=== PATIENT | male | born 1955 | race African-American/Black ===

== ENCOUNTER 2017-11-04 21:21 | Inpatient (IN) | payer OTHER, MEDICARE ==
[~2017-11-04] VITALS: Ht 172.7 cm; Wt 95.5 kg
[2017-11-04] MEDS ORDERED: DIPHTH/TETANUS/ACEL PERTUSSIS (BOOSTER) 0.5 ML VIAL/PFS IM ONE (21:34)
[2017-11-04] MEDS ORDERED: ceFAZolin 2 GM PREMIX 50 ML ONE (21:34)
[2017-11-04 21:48] LABS: AUTOMATED NEUTROPHIL # 4.6 TH/MM3 (1.8-7.7); BASOPHIL # 0.1 TH/MM3 (0-0.2); BASOPHIL % 1.4 % (0.0-2.0); EOSINOPHIL # 0.5 TH/MM3 (0-0.4); EOSINOPHIL % 4.6 % (0.0-4.0); HEMATOCRIT 33.3 % (39.0-51.0); HEMOGLOBIN 10.6 GM/DL (13.0-17.0); LYMPH % 40.5 % (9.0-44.0); LYMPHOCYTE # 4.3 TH/MM3 (1.0-4.8); MEAN CELL VOLUME 82.8 FL (80.0-100.0); MEAN CORPUSCULAR HEMOGLOBIN 26.5 PG (27.0-34.0); MEAN PLATELET VOLUME 6.6 FL (7.0-11.0); MONO % 9.5 % (0.0-8.0); PLATELET COUNT 410 TH/MM3 (150-450); RED BLOOD COUNT 4.02 MIL/MM3 (4.50-5.90); RED CELL DISTRIBUTION WIDTH 17.3 % (11.6-17.2); WHITE BLOOD COUNT 10.6 TH/MM3 (4.0-11.0)
[2017-11-04 21:56] LABS: INTERNATIONAL NORMALIZED RATIO 0.9 RATIO; PROTHROMBIN TIME - PATIENT 9.1 SEC (9.8-11.6)
[2017-11-04 22:00] VITALS: BP 151/81; PULSE 91; RESP 20; TEMP 98.3; O2SAT 100
[2017-11-04] MEDS ORDERED: ETOMIDATE 20 MG/10 ML VIAL ONE (22:01)
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
[2017-11-04] MEDS ORDERED: PROPOFOL 500 MG/50 ML INJ 50 ML ONE ×2 (22:24→23:36)
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
[2017-11-04] MEDS ORDERED: SODIUM CHLOR 0.9% 1000 ML INJ 1,000 ML IV SCH (22:38)
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
[2017-11-04] MEDS ORDERED: MAGNESIUM HYDROXIDE SUSP 30 ML CUP PO PRN (22:45)
[2017-11-04] MEDS ORDERED: LACTULOSE SYRUP 20 GM/30 ML CUP PO PRN (22:45)
[2017-11-04] MEDS ORDERED: BISACODYL 10 MG SUPP RECTAL PRN (22:45)
[2017-11-04] MEDS ORDERED: MISCELLANEOUS NURSING INFORMATION XX SCH (22:45)
[2017-11-04] MEDS ORDERED: SENNOSIDES 8.6 MG TAB PO PRN (22:45)
[2017-11-04] MEDS ORDERED: CHLORHEXIDINE GLUCONATE 2 % 1 PACK (2 CLOTHS) TOP PRN (22:45)
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
--- NOTE | 2017-11-04 22:51 | PD.CONS ---
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 CONCLUSION: 1. Comminuted impacted distal femoral fracture. Preston Cuellar MD Elbow X-Ray 11/04/17 0000 Signed Impressions: Service Date/Time: Saturday, November 04, 2017 21:23 - CONCLUSION: 1. Limited examination demonstrating comminuted fracture of the distal humerus and proximal ulna. Preston Cuellar MD Chest X-Ray 11/04/17 0000 Signed Impressions: Service Date/Time: Saturday, November 04, 2017 21:23 - CONCLUSION: 1. Displaced lower left rib fractures without significant pneumothorax. 2. Patchy airspace disease in the left lower lung zone consistent with contusions. Preston Cuellar MD Assessment and Plan Assessment and Plan Caprini Risk Assessment Model Point Value = 1 Point Value = 2 Point Value = 3 Point Value = 5 Age 41-60 Minor surgery BMI > 25 kg/m2 Swollen legs Varicose veins or History of unexplained or recurrent spontaneous Oral contraceptives or hormone replacement Sepsis (< 1 month) Serious lung disease, including pneumonia (< 1 month) Abnormal pulmonary function Acute myocardial infarction Congestive heart failure (< 1 month) History of inflammatory bowel disease Medical patient at bed rest Age 61-74 Arthroscopic surgery Major open surgery (> 45 min) Laparoscopic surgery (> 45 min) Malignancy Confined to bed (> 72 hours) Immobilizing plaster cast Central venous access Age >= 75 History of VTE Family history of VTE Factor V Leiden Prothrombin [id number] Lupus anticoagulant Anticardiolipin antibodies Elevated serum homocysteine Heparin-induced thrombocytopenia Other congenital or acquired thrombophilia Stroke (< 1 month) Elective arthroplasty Hip, pelvis, or leg fracture Acute spinal cord injury (< 1 month) Prophylaxis Regimen Total Risk Factor Score Risk Level Prophylaxis Regimen 0-1 Low Early ambulation 2 Moderate Order ONE of the following: *Sequential Compression Device (SCD) *Heparin 5000 units SQ BID 3-4 Higher Order ONE of the following medications: *Heparin 5000 units SQ TID *Enoxaparin/Lovenox 40 mg SQ daily (WT < 150 kg, CrCl > 30 mL/min) *Enoxaparin/Lovenox 30 mg SQ daily (WT < 150 kg, CrCl > 10-29 mL/min) *Enoxaparin/Lovenox 30 mg SQ BID (WT < 150 kg, CrCl > 30 mL/min) AND/OR *Sequential Compression Device (SCD) 5 or more Highest Order ONE of the following medications: *Heparin 5000 units SQ TID (Preferred with Epidurals) *Enoxaparin/Lovenox 40 mg SQ daily (WT < 150 kg, CrCl > 30 mL/min) *Enoxaparin/Lovenox 30 mg SQ daily (WT < 150 kg, CrCl > 10-29 mL/min) *Enoxaparin/Lovenox 30 mg SQ BID (WT < 150 kg, CrCl > 30 mL/min) AND *Sequential Compression Device (SCD) Attending Statement I reviewed his clinical and radiological studies Pelvis X-Ray 11/04/172135 Signed Impressions: Service Date/Time: Saturday, November 04, 2017 21:23 - CONCLUSION: 1. Right pubic rami and bilateral sacral fractures. Preston Cuellar MD Chest X-Ray 11/04/172135 Signed Impressions: Service Date/Time: Saturday, November 04, 2017 21:23 - CONCLUSION: 1. ETT in good position. Preston Cuellar MD Hand X-Ray 11/04/17 Signed Impressions: Service Date/Time: Saturday, November 04, 2017 21:23 - CONCLUSION: 1. Limited examination. 2. Comminuted fracture of the distal fourth metacarpal with questionable nondisplaced fracture of the proximal fourth phalanx. Preston Cuellar MD Femur X-Ray 11/04/17 0000 Signed Impressions: Service Date/Time: Saturday, November 04, 2017 21:23 - CONCLUSION: 1. Comminuted impacted distal femoral fracture. Preston Cuellar MD Elbow X-Ray 11/04/17 Signed Impressions: Service Date/Time: Saturday, November 04, 2017 21:23 - CONCLUSION: 1. Limited examination demonstrating comminuted fracture of the distal humerus and proximal ulna. Preston Cuellar MD Chest X-Ray 11/04/17 0000 Signed Impressions: Service Date/Time: Saturday, November 04, 2017 21:23 - CONCLUSION: 1. Displaced lower left rib fractures without significant pneumothorax. 2. Patchy airspace disease in the left lower lung zone consistent with contusions. Preston Cuellar MD Traumatic brain injury. neuro checks in a serial fashion. Placement of ICP monitor is indicated as recommended by the [facility] [employer] of [employer]. A follow-up CT of the head will be obtained in 24 hours. He is at risk of deterioration. If the hemorrhage gets significantly worse he may need to undergo a craniotomy with evacuation of the hematoma. Narcotic analgesics for pain control Pulmonary. FULL MECHANICAL VENTILATION. aggressive pulmonary toilette, nasotracheal suction, and breathing treatments with nebulizers. Femur fracture. COnsult orthopedics \ Daily PT and OT Nutrition. Tolerating Oral diet Renal. monitor closely urine output, BUN and creatinine Endocrine.Monitor serial Acu checks and SSI as needed in detail ID monitor for signs of infection Protonix for stress ulcer prophylaxis Aneesh hose and SCD's for DVT prophylaxis Further recommendations will be provided depending on the patient's clinical evaluation and follow up studies. Doug Fu MD Nov 04, 2017 22:51
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
[2017-11-04 23:00] VITALS: PULSE 85
[2017-11-04] MEDS ORDERED: fentaNYL DRIP 250 ML IV PRN (23:00)
[2017-11-04] MEDS ORDERED: PROPOFOL 1000 MG/100 ML INJ 100 ML IV PRN (23:00)
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
[2017-11-04 23:57] VITALS: O2SAT 100
[2017-11-05] VITALS (17 sets, daily range): BP systolic 114–155; BP diastolic 54–84; PULSE 55–86; RESP 18–20; TEMP 91.8–97.5; O2SAT 100
[2017-11-05] MEDS: levETIRAcetam INJ 500 MG in SODIUM CHLORIDE 0.9% INJ 100 ML IV SCH ×3 (00:24→20:48)
[2017-11-05] MEDS ORDERED: MANNITOL INJ 200 ML ONE (00:38)
[2017-11-05] MEDS ORDERED: MIDAZOLAM HCL 5 MG/ML VIAL (1 ML) ONE (00:43)
[2017-11-05] MEDS ORDERED: ROCURONIUM INJ 50 MG/5 ML VIAL ONE (00:45)
[2017-11-05] MEDS ORDERED: MANNITOL 12.5 GM/50 ML VIAL IV ONE (00:45)
[2017-11-05] MEDS ORDERED: MIDAZOLAM HCL 2 MG/2 ML VIAL IV PUSH ONE (00:45)
[2017-11-05] MEDS ORDERED: NOREPINEPHRINE 4 MG/4 ML AMP ONE (00:58)
[2017-11-05] MEDS ORDERED: SODIUM CHLORIDE 23.4% INJ 240 MEQ in SYRINGE/BAG 1 EA IV ONE (01:00)
[2017-11-05] MEDS ORDERED: levETIRAcetam 500 MG/NS 100 ML IV ONE ×2 (01:15)
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
--- NOTE | 2017-11-05 01:55 | PD.PROCEDR ---
Procedure Note Procedure DATE: 11/05/17 CENTRAL LINE PLACEMENT: Right internal jugular vein. INDICATION: Central venous access CONSENT Procedure was performed emergently as patient has severe TBI in need of central venous access for hypertonic saline. Patient is not capacitated for medical decision-making. No family available. DESCRIPTION OF THE PROCEDURE The patient was placed in supine position, mild Trendelenburg. In-line C- spine stabilization was maintained by catering administrative assistant while the c-collar was removed. The skin was cleansed with Chloraprep 3. Additional barrier precautions included large sterile drape, sterile gloves, sterile gown, face mask, and hat. 1 % lidocaine was used for local anesthesia. Attempted R subclavian site x3 without success. Under direct ultrasound guidance and on single attempt, the right IJ vein was accessed with an introducer needle. The guide wire was advanced and the tract was dilated. Using Seldinger technique a 7 Sami 20 cm antimicrobial coated triple-lumen catheter was advanced to a depth of 18 centimeters. The guide wire was removed. All ports had good return of dark venous blood and flushed easily with saline. The central line was secured with Stat-lock. A sterile dressing with antibiotic disc was applied. ESTIMATED BLOOD LOSS: Minimal COMPLICATIONS: No apparent complications. STAT chest x-ray demonstrates satisfactory central venous line position without apparent complication. Nichelle Bailon MD Nov 05, 2017 01:54
[2017-11-05] MEDS ORDERED: CALCIUM CHLORIDE INJ 1 GM in DEXTROSE 5% IN WATER 100ML INJ 100 ML IV ONE ×2 (02:00)
[2017-11-05] MEDS ORDERED: SODIUM POLYSTYRENE SULFONATE SUSP 15 GM/60 ML CUP OG-TUBE ONE (02:00)
[2017-11-05] MEDS ORDERED: TERBUTALINE INJ 1 MG/ML AMP SQ PRN (02:00)
[2017-11-05] MEDS ORDERED: SODIUM BICARBONATE 8.4% INJ 50 MEQ/50 ML SYR IV PUSH ONE ×2 (02:00→07:00)
--- NOTE | 2017-11-05 02:13 | RADRPT ---
EXAM DATE/TIME: 11/05/2017 02:04 [place] COMPARISON: CHEST SINGLE AP, November 04, 2017, 21:23. INDICATIONS : Central line placement. MEDICAL HISTORY : None. SURGICAL HISTORY : None. ENCOUNTER: Initial ACUITY: 1 day PAIN SCORE: 0/10 LOCATION: Bilateral chest FINDINGS: A single AP semierect view of the chest was obtained and again demonstrates an endotracheal tube in p lace with the tip approximately 1-2 cm above the jodi. A nasogastric tube is been placed and is see n coursing through the esophagus into the stomach. There is been placement of a right internal jugula r central venous line with the tip projected over the superior vena cava. There is no pneumothorax. A bnormal opacity remains at the left lung base with blunting of the costophrenic angle. The heart size remains within normal limits. CONCLUSION: 1. Interval placement of right internal jugular central venous line with no pneumothorax. 2. Interval placement of nasogastric tube. 3. Abnormal opacity at left lung base with blunting of the costophrenic angle. Rajeev Fairchild MD on November 05, 2017 at 2:11 Board Certified Radiologist. This report was verified electronically.
--- NOTE | 2017-11-05 02:40 | PD.PROCEDR ---
Procedure Note Procedure DATE: 11/05/17 PROCEDURE: Right radial arterial catheter placement INDICATION: Patient with severe TBI in need of continuous hemodynamic monitoring. DETAILS OF PROCEDURE The skin was cleansed with Chloraprep 2. Additional barrier precautions included sterile towels, sterile gloves, sterile gown, face mask, and hat. Access the artery 3 but had difficulty advancing catheter using standard butterfly Arrow kit. Changed to rapid flow arrow kit. On the first attempt, the artery was accessed with an introducer needle. The guide wire was advanced. Using Seldinger technique 20 gauge arterial catheter was placed. The catheter was connected to a transducer line and flushed with saline. The video monitor displayed normal arterial wave forms. The catheter was secured with 2-0 silk. A sterile dressing with antibiotic disc was applied. ESTIMATED BLOOD LOSS: minimal COMPLICATIONS: None Nichelle Bailon MD Nov 05, 2017 02:40
[2017-11-05] MEDS: fentaNYL DRIP 250 ML IV PRN ×2 (02:57→19:58)
[2017-11-05] MEDS: PROPOFOL 1000 MG/100 ML INJ 100 ML IV PRN ×3 (02:57→19:58)
[2017-11-05] MEDS: NOREPINEPHRINE INJ 4 MG in SODIUM CHLOR 0.9% 250 ML INJ 246 ML IV PRN (02:58)
[2017-11-05] MEDS: 3% SALINE INJ 500 ML IV SCH (03:00)
[2017-11-05] MEDS: MIDAZOLAM 100 MG/100 ML INJ 100 ML IV PRN ×2 (03:17→19:57)
[2017-11-05] MEDS: CHLORHEXIDINE GLUCONATE 2 % 1 PACK (2 CLOTHS) TOP SCH (04:00)
[2017-11-05 05:20] LABS: AUTOMATED NEUTROPHIL # 4.6 TH/MM3 (1.8-7.7); BASOPHIL % 0.3 % (0.0-2.0); HEMATOCRIT 22.4 % (39.0-51.0); HEMOGLOBIN 7.3 GM/DL (13.0-17.0); LYMPH % 8.2 % (9.0-44.0); LYMPHOCYTE # 0.5 TH/MM3 (1.0-4.8); MEAN CELL VOLUME 81.5 FL (80.0-100.0); MEAN CORPUSCULAR HEMOGLOBIN 26.8 PG (27.0-34.0); MEAN CORPUSCULAR HGB CONC 32.8 % (32.0-36.0); MEAN PLATELET VOLUME 6.4 FL (7.0-11.0); MONO % 13.2 % (0.0-8.0); MONOCYTE # 0.8 TH/MM3 (0-0.9); NEUT % 78.3 % (16.0-70.0); PLATELET COUNT 280 TH/MM3 (150-450); RED BLOOD COUNT 2.74 MIL/MM3 (4.50-5.90); RED CELL DISTRIBUTION WIDTH 17.5 % (11.6-17.2); WHITE BLOOD COUNT 5.9 TH/MM3 (4.0-11.0)
[2017-11-05 05:29] LABS: INTERNATIONAL NORMALIZED RATIO 0.9 RATIO; PROTHROMBIN TIME - PATIENT 9.6 SEC (9.8-11.6)
[2017-11-05 05:40] LABS: BICARBONATE 22.9 MEQ/L (21.0-32.0); CALCIUM 7.4 MG/DL (8.5-10.1); CREATININE 4.37 MG/DL (0.60-1.30)
[2017-11-05] MEDS ORDERED: DEXTROSE 50% IN WATER 50 ML SYRINGE IV PUSH ONE (07:00)
[2017-11-05] MEDS ORDERED: INSULIN HUMAN REGULAR 1,000 UNITS/10 ML VIAL IV PUSH ONE ×2 (07:00→14:15)
[2017-11-05] MEDS ORDERED: CALCIUM CHLORIDE 10% SOLN 1 GRAM/10 ML SYR IV PUSH ONE (07:00)
[2017-11-05 07:08] LABS: CALCIUM-PROTEIN CORRECTED 8.2 MG/DL (8.5-10.1); TOTAL PROTEIN 5.6 GM/DL (6.4-8.2)
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
[2017-11-05] MEDS: CHLORHEXIDINE 0.12% (ORAL KIT) 15 ML CUP MT SCH ×2 (07:57→20:48)
[2017-11-05] MEDS: DOCUSATE SODIUM 50 MG/SENNA 8.6 MG TAB PO SCH ×2 (07:58→20:48)
[2017-11-05] MEDS: FAMOTIDINE 20 MG/2 ML VIAL IV PUSH SCH ×2 (07:58→20:49)
[2017-11-05] MEDS ORDERED: SODIUM BICARBONATE 8.4% INJ 100 MEQ in DEXTROSE 5% IN WATE 1000ML INJ 1,000 ML IV SCH ×2 (08:00)
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
[2017-11-05] MEDS: SODIUM BICARBONATE 8.4% INJ 100 MEQ in SODIUM CHLOR 0.9% 1000 ML INJ 1,000 ML IV SCH ×2 (08:30→15:15)
[2017-11-05] MEDS: ceFAZolin INJ 1,000 MG VIAL ONE ×2 (08:39→09:28)
[2017-11-05] MEDS ORDERED: VANCOMYCIN HCL 1000 MG VIAL ONE (08:39)
[2017-11-05] MEDS ORDERED: GENTAMICIN SULFATE 80 MG/2 ML VIAL ONE ×2 (08:44)
[2017-11-05 10:01] LABS: HEMATOCRIT 23.4 % (39.0-51.0); HEMOGLOBIN 7.6 GM/DL (13.0-17.0)
[2017-11-05] MEDS ORDERED: PROPOFOL 500 MG/50 ML INJ 50 ML ONE (10:19)
[2017-11-05] MEDS ORDERED: ONDANSETRON HCL 4 MG/2 ML VIAL IVP PRN (11:00)
[2017-11-05] MEDS ORDERED: DEXTROSE 50% IN WATER 50 ML VIAL(D50) IV PUSH PRN (11:00)
[2017-11-05] MEDS ORDERED: GLUCAGON 1 MG/ML VIAL OTHER PRN (11:00)
[2017-11-05] MEDS ORDERED: LACTATED RINGER'S 1000 ML INJ 1,000 ML IV SCH (11:00)
[2017-11-05] MEDS ORDERED: Post-op Orders (for Pharmacy) XX ONE (11:00)
[2017-11-05] MEDS: INSULIN ASPART SUPPLEMENTAL SCALE SQ SCH ×3 (11:00→23:39)
[2017-11-05] MEDS ORDERED: diphenhydrAMINE HCL 25 MG CAP PO PRN (11:00)
[2017-11-05] MEDS ORDERED: ACETAMINOPHEN/HYDROcodone 325 MG/10 MG TAB PO PRN (11:00)
--- NOTE | 2017-11-05 11:06 | PD.OP ---
cc: Jose Daniel Flores MD Operative Report Date of Surgery: Nov 05, 2017 Preoperative Diagnosis: Left distal humerus and olecranon fractures, open left hand second and fourth metacarpal fractures, open left distal femur fracture, multiple pelvic ring fractures, left tibia plateau fracture Postoperative Diagnosis: Procedure: Irrigation and debridement of left hand open second metacarpal fracture, complex wound closure left hand 15 cm in length, external fixation of pelvis, closed reduction pelvic ring fractures, irrigation debridement of open left distal femur fracture, open reduction internal fixation of left distal femur fracture Surgeon: Jose Daniel Flores Security Administrator(s): WONG Ziegler PA-C The surgical procedure was assisted by my physician energy assistant. My P.A. presence was necessary throughout this case for the manipulation and positioning of the surgical extremity. My P.A. was assisting me throughout the duration of this procedure. The skill set of a physician energy assistant was medically necessary to complete this procedure. During the surgical case the assistant professor surgical technology was working at the back table and the physician energy assistant was directly assisting me. Operation and Findings: Plan of activity: Nonweightbearing left arm, low nonweightbearing left leg Implants used: ITS, Orthofix Patient was seen and examined preoperatively. Patient was intubated and sedated. Patient was found to have multiple injuries. He was found to have open left hand fractures and open left distal femur fracture. Because of the open nature of the injuries, this medically was deemed medically necessary as well as medically urgent. Family was not available to sign consents. 2 physicians signed consent with agreement that this procedure was medically necessary to proceed today. Operative site was marked. Patient was brought to the OR, placed on OR table, and given IV sedation with GETA. Spinal precautions were maintained throughout movement of the patient. IV antibiotics were administered and timeout procedure was performed. The left arm and left leg were prepped with alcohol, followed with Hibiclens, draped in usual sterile fashion. A timeout procedure was performed. Patient's head was elevated at all times to help minimize intracranial pressures. The procedure began attention turned towards the left hand. The distal humerus fractures were closed. These will be treated later date. The left hand lacerations were debrided. Skin subcutaneous tissue and fascia were sharply debrided. The second metacarpal fracture was debrided with curettes. After thorough debridement of the hand and soft tissue were thoroughly irrigated with sterile saline. There were 2 lacerations. One laceration was in the first webspace and a second one was on the dorsum of the hand. There was complete laceration of the third digit extensor tendons. At this point the wounds appeared to be clean. Hand surgery will be consultative definitively manage his injuries. Next attention was turned towards closure of the lacerations. Both lacerations were closed on the hand. Skin was closed with 3-0 nylon. Lacerations were closed with a combination of retention suture and vertical mattress suture. The laceration was stellate and complex in nature. Skin edges were completely closed completely with minimal skin tension. Next attention was turned towards the pelvis. Patient had bilateral rami fractures as well as bilateral sacral fractures. Attention was turned towards external fixation. A small incision was made over the anterior inferior iliac spine bilaterally. The supra-acetabular position was visualized under fluoroscopy. Using the Orthofix system, external fixator pins were placed in the supra-acetabular position. Multiplanar fluoroscopy was used to guide pin placement. At this point a external fixator construct was created. The pelvis was gently manipulated to improve reduction. The external fixator was now tightened to hold reduction. Fluoroscopy was used to confirm appropriate alignment of the pelvic fractures. Next attention was turned towards the distal femur. with a 5-inch incision over the lateral aspect of the distal femur. Subcutaneous tissue was dissected with Bovie. Iliotibial band was split in line with fibers. At this point the fracture was visualized. The wound was now thoroughly debrided. Overall the wound was clean. Curettes and rongeurs were used to debride the end of the bone. Multiple small bone fragment were excised. After thorough debridement of soft tissue, muscle, and bone the wound was thoroughly irrigated with sterile saline. Next attention was turned to open reduction internal fixation of the distal femur Traction was applied. Fracture was manipulated. The fracture reduced into excellent alignment. Steinmann pins were used to hold provisional fixation. At this point attention was turned to plate placement. A lateral condylar plate was selected and attached to the insertion handle jig. The plate was placed underneath the vastus lateralis. Steinmann pins were used to hold the plate to bone. Multiplanar fluoroscopy confirmed appropriate placement of plate. Multiple 4.5 cortical screws were now placed in percutaneous fashion through the plate. The plate was compressed to bone. Multiple locking screws were now placed in the distal segment of the distal femur. Additional locking screws were placed into the femoral shaft. All screws were predrilled and premeasured for appropriate length. Final fluoroscopy revealed excellent alignment of fracture with well-placed hardware. Wound was thoroughly irrigated. Fascia was closed with #1 PDS. Subcutaneous tissue was closed with 3-0 PDS. Skin was closed with quinn and 3-0 nylon. Sterile dressings were applied. The patient was placed into a knee immobilizer and transferred to recovery in stable condition. Patient was found to have a comminuted left tibial plateau fracture. This will need staged surgery. CT scan will be obtained of the left knee. Calf compartments were soft. He will also need definitive fixation of left elbow fractures. Needle and sponge counts were correct. Patient was then transferred back to intensive care in critical condition. Jose Daniel Flores MD Nov 05, 2017 11:06
[2017-11-05] MEDS ORDERED: PHENYLEPH/NS 1000 MCG/10 ML SYR IV ONE (12:00)
[2017-11-05] MEDS ORDERED: ROCURONIUM INJ 50 MG/5 ML SYRINGE IV PUSH ONE (12:00)
[2017-11-05] MEDS ORDERED: NORMOSOL R INJ 1,000 ML IV ONE (12:00)
[2017-11-05] MEDS ORDERED: LIDOCAINE HCL 1% PF 5 ML SYRINGE OTHER ONE (12:00)
[2017-11-05] MEDS ORDERED: SUCCINYLCHOLINE CHLORIDE 200 MG/10 ML VIAL IV ONE (12:00)
[2017-11-05] MEDS ORDERED: ERGOCALCIFEROL (VIT D2) 50,000 UNIT CAP PO SCH (12:00)
[2017-11-05] MEDS ORDERED: PROPOFOL 200 MG/20 ML AMP IV ONE (12:00)
--- NOTE | 2017-11-05 13:16 | RADRPT ---
EXAM DATE/TIME: 11/05/2017 09:49 [facility] COMPARISON: CT ABDOMEN & PELVIS W/O CONTRAST, November 04, 2017, 21:47. PELVIS AP ONLY, November 04, 2017, 21:23 . INDICATIONS : External fixation plevis. MEDICAL HISTORY : None. SURGICAL HISTORY : None. ENCOUNTER: Initial ACUITY: 1 day PAIN SCORE: Non-responsive. LOCATION: Bilateral Pelvis FINDINGS: 2 Limited digital views of the pelvis reveal grossly satisfactory alignment of pubic and sacroiliac f ractures. CONCLUSION: Satisfactory operative configuration Eduard Bradshaw MD on November 05, 2017 at 13:13 Board Certified Radiologist. This report was verified electronically.
[2017-11-05 13:28] LABS: BICARBONATE 25.2 MEQ/L (21.0-32.0); CALCIUM 7.9 MG/DL (8.5-10.1); CREATININE 3.91 MG/DL (0.60-1.30)
--- NOTE | 2017-11-05 13:36 | RADRPT ---
EXAM DATE/TIME: 11/05/2017 10:32 [facility] COMPARISON: No previous studies available for comparison. INDICATIONS : Open reduction internal fixation left femur. MEDICAL HISTORY : None. SURGICAL HISTORY : None. ENCOUNTER: Initial ACUITY: 1 day PAIN SCORE: Non-responsive. LOCATION: Left Femur FINDINGS: 7 images were recorded digitally in the operating room during C-arm during placement of a lateral brooks te and multiple screws in the distal femur. CONCLUSION: Intraoperative images. Paco Llamas MD on November 05, 2017 at 13:33 Board Certified Radiologist. This report was verified electronically.
[2017-11-05] MEDS: CALCIUM/VITAMIN D 250 MG/125 U TAB PO SCH ×2 (13:59→18:00)
[2017-11-05] MEDS ORDERED: DEXTROSE 50% IN WATER 50 ML SYRINGE IV ONE (14:15)
[2017-11-05] MEDS ORDERED: SODIUM BICARBONATE 8.4% INJ 50 MEQ/50 ML SYR IV ONE (14:15)
[2017-11-05] MEDS ORDERED: CALCIUM GLUCONATE 10% 1 GM/10 ML VIAL IV ONE (14:15)
[2017-11-05] MEDS ORDERED: CALCIUM CHLORIDE 10% SOLN 1 GRAM/10 ML SYR IV ONE (14:30)
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
[2017-11-05] MEDS ORDERED: SODIUM POLYSTYRENE SULFONATE SUSP 15 GM/60 ML CUP PO ONE (14:45)
[2017-11-05] MEDS ORDERED: FUROSEMIDE 100 MG/10 ML VIAL IV PUSH ONE (15:30)
--- NOTE | 2017-11-05 15:31 | EKG ---
Date Performed: 11/04/2017 Time Performed: 23:16:02 PTAGE: 62 years EKG: Possible ectopic atrial rhythm. Possible inferior infarct - age undetermined Abnormal ECG NO PREVIOUS TRACING DOCTOR: Troy Byrd Interpretating Date/Time 11/05/2017 15:29:58
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
[2017-11-05 16:39] LABS: HEMATOCRIT 23.7 % (39.0-51.0); MEAN CELL VOLUME 80.7 FL (80.0-100.0); MEAN CORPUSCULAR HEMOGLOBIN 27.3 PG (27.0-34.0); MEAN CORPUSCULAR HGB CONC 33.8 % (32.0-36.0); MEAN PLATELET VOLUME 6.8 FL (7.0-11.0); PLATELET COUNT 188 TH/MM3 (150-450); RED BLOOD COUNT 2.93 MIL/MM3 (4.50-5.90); RED CELL DISTRIBUTION WIDTH 16.4 % (11.6-17.2); WHITE BLOOD COUNT 4.3 TH/MM3 (4.0-11.0)
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
[2017-11-05 17:05] LABS: CREATININE 4.21 MG/DL (0.60-1.30)
[2017-11-05 17:06] LABS: BICARBONATE 26.2 MEQ/L (21.0-32.0); CALCIUM 9.3 MG/DL (8.5-10.1)
[2017-11-05] MEDS: ceFAZolin 2 GM PREMIX 50 ML IV SCH (17:37)
--- NOTE | 2017-11-05 18:28 | RADRPT ---
EXAM DATE/TIME: 11/05/2017 17:13 [facility] COMPARISON: FEMUR LEFT (AP & LAT/2VWS), November 05, 2017, 10:32. INDICATIONS : Left hand pain. MEDICAL HISTORY : None. SURGICAL HISTORY : None. ENCOUNTER: Initial ACUITY: 1 day PAIN SCORE: Non-responsive. LOCATION: Left hand. FINDINGS: The examination demonstrates a severely comminuted, moderately displaced, foreshortened fracture invo lving the second metacarpal. In addition, there is mildly displaced fracture through the base of the proximal phalanx of the second digit as well. There are partially visualized fractures involving the head of the fourth metacarpal. Evaluation of fractures is limited secondary to overlying casting mate rial. The remainder the visualized osseous structures appear grossly intact. CONCLUSION: 1. Severely comminuted fracture involving the second metacarpal. 2. Mildly displaced fracture involving the base of the proximal phalanx of the second digit. 3. Mildly displaced fracture involving the fourth metacarpal head Lai Tolliver MD on November 05, 2017 at 18:24 Board Certified Radiologist. This report was verified electronically.
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
[2017-11-05] MEDS: DOCUSATE SODIUM 100 MG CAP PO SCH (20:49)
[2017-11-05 21:36] LABS: SODIUM,RANDOM URINE 80 MEQ/L
[2017-11-05 22:08] LABS: OSMOLALITY,URINE 352 MOSM/KG (300-1300)
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
[2017-11-06] VITALS (19 sets, daily range): BP systolic 111–130; BP diastolic 35–60; PULSE 73–83; RESP 16–20; TEMP 97–99; O2SAT 96–100
[2017-11-06] MEDS: ceFAZolin 2 GM PREMIX 50 ML IV SCH ×3 (00:05→17:08)
[2017-11-06] MEDS: 3% SALINE INJ 500 ML IV SCH (00:10)
[2017-11-06] MEDS: PROPOFOL 1000 MG/100 ML INJ 100 ML IV PRN ×3 (00:54→11:21)
[2017-11-06] MEDS: CHLORHEXIDINE GLUCONATE 2 % 1 PACK (2 CLOTHS) TOP SCH (03:30)
[2017-11-06] MEDS: INSULIN ASPART SUPPLEMENTAL SCALE SQ SCH ×4 (05:26→23:28)
[2017-11-06 05:29] LABS: BASOPHIL % 0.3 % (0.0-2.0); EOSINOPHIL % 0.3 % (0.0-4.0); HEMATOCRIT 24.2 % (39.0-51.0); HEMOGLOBIN 8.2 GM/DL (13.0-17.0); LYMPH % 15.9 % (9.0-44.0); LYMPHOCYTE # 0.9 TH/MM3 (1.0-4.8); MEAN CELL VOLUME 80.1 FL (80.0-100.0); MEAN CORPUSCULAR HEMOGLOBIN 27.3 PG (27.0-34.0); MEAN CORPUSCULAR HGB CONC 34.1 % (32.0-36.0); MEAN PLATELET VOLUME 7.2 FL (7.0-11.0); MONO % 14.7 % (0.0-8.0); MONOCYTE # 0.9 TH/MM3 (0-0.9); NEUT % 68.8 % (16.0-70.0); PLATELET COUNT 206 TH/MM3 (150-450); RED BLOOD COUNT 3.02 MIL/MM3 (4.50-5.90); RED CELL DISTRIBUTION WIDTH 16.3 % (11.6-17.2); WHITE BLOOD COUNT 5.9 TH/MM3 (4.0-11.0)
[2017-11-06] MEDS: NOREPINEPHRINE INJ 4 MG in SODIUM CHLOR 0.9% 250 ML INJ 246 ML IV PRN (05:50)
[2017-11-06 05:57] LABS: BICARBONATE 25.5 MEQ/L (21.0-32.0); CALCIUM 8.3 MG/DL (8.5-10.1); CREATININE 4.54 MG/DL (0.60-1.30)
--- NOTE | 2017-11-06 06:46 | RADRPT ---
EXAM DATE/TIME: 11/06/2017 06:01 [facility] COMPARISON: CHEST SINGLE AP, November 05, 2017, 2:04. INDICATIONS : Shortness of breath. MEDICAL HISTORY : None. SURGICAL HISTORY : None. ENCOUNTER: Subsequent ACUITY: 2 days PAIN SCORE: Non-responsive. LOCATION: Bilateral chest FINDINGS: A single AP semierect portable view of the chest was obtained and again demonstrates an endotracheal tube in place with the tip approximately 2 cm above the jodi. The nasogastric tube remains in place . Abnormal opacity remains at the left lung base with air bronchograms. The left hemidiaphragm is now obscured. The left costophrenic angle is blunted. Right lung remains clear. The heart size is at the upper limits of normal. The right-sided central venous line remains in place. CONCLUSION: 1. Apparent interval increase in opacity at the left lung base. 2. Apparent left effusion. Rajeev Fairchild MD on November 06, 2017 at 6:43 Board Certified Radiologist. This report was verified electronically.
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
[2017-11-06] MEDS: SODIUM BICARBONATE 8.4% INJ 100 MEQ in SODIUM CHLOR 0.9% 1000 ML INJ 1,000 ML IV SCH ×2 (07:44→23:36)
[2017-11-06] MEDS: CHLORHEXIDINE 0.12% (ORAL KIT) 15 ML CUP MT SCH ×2 (08:00→21:00)
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
[2017-11-06] MEDS: DOCUSATE SODIUM 50 MG/SENNA 8.6 MG TAB PO SCH ×2 (08:40→21:42)
[2017-11-06] MEDS: DOCUSATE SODIUM 100 MG CAP PO SCH ×2 (08:40→21:00)
[2017-11-06] MEDS: FAMOTIDINE 20 MG/2 ML VIAL IV PUSH SCH ×2 (08:40→21:43)
[2017-11-06] MEDS: CALCIUM/VITAMIN D 250 MG/125 U TAB PO SCH ×3 (08:40→17:08)
[2017-11-06] MEDS: CHOLECALCIFEROL (VIT D3) 1000 UNIT TAB PO SCH (08:40)
[2017-11-06] MEDS: levETIRAcetam INJ 500 MG in SODIUM CHLORIDE 0.9% INJ 100 ML IV SCH ×2 (08:40→21:42)
[2017-11-06] MEDS: fentaNYL DRIP 250 ML IV PRN (10:00)
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
[2017-11-06] MEDS ORDERED: ENOXAPARIN SODIUM 30 MG/0.3 ML SYRINGE SQ SCH (11:00)
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
[2017-11-06 20:58] LABS: BICARBONATE 27.2 MEQ/L (21.0-32.0); CALCIUM 7.5 MG/DL (8.5-10.1); CREATININE 4.86 MG/DL (0.60-1.30)
[2017-11-07] VITALS (15 sets, daily range): BP systolic 116–133; BP diastolic 50–58; PULSE 78–91; RESP 16; TEMP 95.5–97.9; O2SAT 98–100
[2017-11-07] MEDS: ceFAZolin 2 GM PREMIX 50 ML IV SCH ×3 (00:16→16:37)
[2017-11-07] MEDS: 3% SALINE INJ 500 ML IV SCH (00:59)
[2017-11-07] MEDS: CHLORHEXIDINE GLUCONATE 2 % 1 PACK (2 CLOTHS) TOP SCH (03:23)
[2017-11-07 06:01] LABS: BICARBONATE 25.9 MEQ/L (21.0-32.0); CALCIUM 7.2 MG/DL (8.5-10.1); CREATININE 4.68 MG/DL (0.60-1.30)
--- NOTE | 2017-11-07 06:25 | RADRPT ---
EXAM DATE/TIME: 11/07/2017 05:30 [facility] COMPARISON: 11/06/2017. INDICATIONS : Follow up trauma. Effusion. MEDICAL HISTORY : None. SURGICAL HISTORY : None. ENCOUNTER: Subsequent ACUITY: 4 - 6 days PAIN SCORE: Non-responsive. LOCATION: Bilateral chest FINDINGS: Left rib fractures are again noted with bibasilar consolidation and small effusion. I don't see a pne umothorax. Right lung reasonably clear. Heart size stable, upper limits of normal. Endotracheal tube tip is approximately 2 cm above the jodi. Nasogastric tube courses into the stoma ch. There is a right internal jugular central venous catheter with tip in the superior vena cava. CONCLUSION: Rib fractures with bibasilar consolidation and small effusion again noted on the left not significant ly changed. No pneumothorax. Eduard Rubin MD on November 07, 2017 at 6:22 Board Certified Radiologist. This report was verified electronically.
[2017-11-07 06:28] LABS: CALCIUM-PROTEIN CORRECTED 8.4 MG/DL (8.5-10.1); TOTAL PROTEIN 4.9 GM/DL (6.4-8.2)
[2017-11-07] MEDS: INSULIN ASPART SUPPLEMENTAL SCALE SQ SCH ×4 (06:32→23:00)
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
[2017-11-07] MEDS: CHLORHEXIDINE 0.12% (ORAL KIT) 15 ML CUP MT SCH ×2 (08:00→20:49)
[2017-11-07] MEDS: DOCUSATE SODIUM 50 MG/SENNA 8.6 MG TAB PO SCH ×2 (08:05→20:49)
[2017-11-07] MEDS: CHOLECALCIFEROL (VIT D3) 1000 UNIT TAB PO SCH (08:05)
[2017-11-07] MEDS: DOCUSATE SODIUM 100 MG CAP PO SCH ×2 (08:05→20:49)
[2017-11-07] MEDS: CALCIUM/VITAMIN D 250 MG/125 U TAB PO SCH ×4 (08:05→18:00)
[2017-11-07] MEDS: FAMOTIDINE 20 MG/2 ML VIAL IV PUSH SCH ×2 (08:06→20:49)
[2017-11-07] MEDS: levETIRAcetam INJ 500 MG in SODIUM CHLORIDE 0.9% INJ 100 ML IV SCH ×2 (08:06→20:49)
--- NOTE | 2017-11-07 08:25 | HHI.PR ---
Neuropsych Emotional Emotional: UnabletoAssess: Emotional, Anxious/Fearful, Depressed/Sad, Hostile/ Resentful, Irritable/Angry/Frustrate, Labile, Constricted/Blunted Behavior Behavior: Intact: Impulsive/Agitated, Unable to Asses: Behavior, Coping/ Acceptance, Cooperative w/ Treatment, Motivation, Frustration Tolerance/Percy, Suicidal/Homicidal Risk Cognitive Cognitive: Unable to Asses: Cognitive, Attention/Concentration, Confused/ Orientation, Insight/Awareness, Judgement/Problem-Solving, Memory Psychosocial Psychosocial: Unable to Asses: Psychosocial, Family/Other Adjustment, Realistic Expectation, Self-Esteem/Confidence Progress Notes/Response to Tx Contents of Sessions: Adjustment, Level of Consciousness Time with Patient: 15 minutes Premorbid psychological status Premorbid Cognitive, Emotional and Behavioral Status: Unable to Assess. The patient has unknown years of education and an unknown work history prior to this injury. The patient has no known prior] psychiatric difficulties, as described above. Substance abuse history is unknown. Behavioral Reactions of Patient and Family/Support System: Deferred. The patients family is experiencing ongoing issues of adjustment given the nature of the injury, and this aspect of recovery will require ongoing monitoring. Emotional/Behavioral Status of Patient and Family/Support System: Deferred. Pertinent issues, if appropriate to this patients clinical care, are described in detail above. Maximizing acute care outcome It is recommended that the patient be monitored for emergent behavioral impulsivity as the medical condition evolves. This patients neuropathological challenges may limit his rehabilitation potential going forward, and these challenges will require specialized therapeutic skills to maximize outcome. Additionally, the patients family is experiencing ongoing issues of adjustment given the traumatic nature of the injury, and they may benefit from ongoing psychological assistance. At this point in the recovery process, the patient does not have cognitive capacity as the patient is unable to understand a situation and its likely consequences, nor is he able to manipulate information rationally. Cognitive capacity will be assessed throughout the recovery process. Anticipated Problems Ongoing areas of concern will include behavioral impulsivity, lack of insight and judgment, which is expected to improve with time and treatment. Given the severity of the patient's injuries it is my clinical opinion that this patient will be unable to return to any type of productive employment for at least one year, perhaps longer and likely never. This patient is not considered safe to discharge home without supervision. Treatment Plan This clinician will continue to follow with you throughout the course of this patients critical care treatment, and I will be available to meet with the patients family/support system to facilitate their understanding and the ongoing care of their family member. The goals of neuropsychological intervention shall be both educational and supportive to the family/support system as is deemed clinically appropriate. [facility] Level: I:No response-total assistance Diagnosis: (1) Major neurocognitive disorder as late effect of traumatic brain injury without behavioral disturbance Progress Note Narrative PTD 3. The patient remains intubated, ventilated and sedated. No neurobehavioral issues at present. He was out today for surgery. He is [place] I will follow. Jens Strickland PhD Nov 07, 2017 8:25 am
[2017-11-07] MEDS ORDERED: VANCOMYCIN HCL 1000 MG VIAL ONE ×2 (09:31→12:05)
[2017-11-07] MEDS ORDERED: GENTAMICIN SULFATE 80 MG/2 ML VIAL ONE (09:31)
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
[2017-11-07] MEDS ORDERED: VECURONIUM BROMIDE 20 MG VIAL IV ONE (12:00)
[2017-11-07] MEDS ORDERED: ROCURONIUM INJ 50 MG/5 ML SYRINGE IV PUSH ONE (12:00)
[2017-11-07] MEDS ORDERED: PHENYLEPH/NS 1000 MCG/10 ML SYR IV ONE (12:00)
[2017-11-07] MEDS ORDERED: PROPOFOL 200 MG/20 ML AMP IV ONE (12:00)
[2017-11-07] MEDS: LACTATED RINGER'S 1000 ML INJ 1,000 ML IV SCH (13:00)
--- NOTE | 2017-11-07 13:07 | PD.OP ---
cc: Jose Daniel Flores MD Operative Report Date of Surgery: Nov 07, 2017 Preoperative Diagnosis: Left bicondylar tibial plateau fracture, severely comminuted intra-articular left distal humerus and olecranon fractures Postoperative Diagnosis: Procedure: Open reduction total fixation bicondylar left tibial plateau fracture, closed reduction of left distal humerus and olecranon fractures, external fixation of left upper extremity Anesthesia: Gen. Surgeon: Jose Daniel Flores [facility] Secretary(s): WONG Warren PA-C The surgical procedure was assisted by my physician engineer third assistant. My P.A. presence was necessary throughout this case for the manipulation and positioning of the surgical extremity. My P.A. was assisting me throughout the duration of this procedure. The skill set of a physician engineer third assistant was medically necessary to complete this procedure. During the surgical case the surgical scrub technician was working at the back table and the physician engineer third assistant was directly assisting me. Operation and Findings: This patient was seen and evaluated preoperatively. Patient sustained multiple injuries including left tibial plateau fracture, comminuted left distal humerus fracture, comminuted left femur fracture, and comminuted left olecranon fracture. He also sustained severe closed head injury. I discussed this case with neurosurgery in critical care preoperatively. At this point it is unknown what his cognitive and functional status will be secondary to his brain injury. Informed consent was obtained preoperatively from his daughter after detailed discussion of the risks and benefits of surgery. Risk of surgery including bleeding, infection, nonunion, painful hardware, stiffness, loss of motion, arthritis, need for knee replacement, as well as medical complications including blood clots, stroke, heart attack, and were discussed. I also discussed the possibility of using allograft bone graft . Preoperatively the operative site was marked. Patient was brought to the operating room and placed on the operating room table. The head of the bed was elevated at all times to help avoid any further head injury or elevated intracranial pressure. Intravenous sedation and general endotracheal anesthesia were administered. IV antibiotics were given and a time out procedure was preformed. The left arm and left leg prepped with alcohol followed by Hibiclens and draped in the usual sterile fashion. Procedure began with a 4-inch curvilinear incision over the anterolateral knee. Subcutaneous tissue was treated with Bovie. Iliotibial band was split in line with fibers. A sub-meniscal arthrotomy was created and the lateral articular surface was visualized. There was significant comminution and depression of the articular surface. There was also split between the medial plateau and lateral plateau. A window was made in the metaphyseal region and bone tamps used to elevate the articular surface. Articular surface reduced into excellent alignment. The medial and lateral plateau fragments were now reduced to each other. A periarticular clamp was used to compress fracture fragments. K-wires were used for provisional fixation. At this point cancellous bone graft was packed under the articular surface using a bone tamp. The cortical fragments were now reduced. The tibial shaft was now reduced to the proximal tibia Fluoroscopy revealed excellent alignment of fracture. A Synthes proximal tibial plate was selected. The plate was provisionally held with K-wires. 3.5 cortical screws were used compress plate to bone distally, and a periarticular clamp was used to compress the medial and lateral tibial plateau fracture fragments together. Multiple locking screws were now placed proximally. Additional screws were placed in the shaft. K-wires were removed. Final fluoroscopy showed excellent alignment of fracture with well- placed hardware. The incision was thoroughly irrigated. Arthrotomy and iliotibial band closed with #1 Vicryl,. Subcutaneous tissues closed with 3-0 Vicryl and skin was closed with quinn. Next attention was turned to the left arm. Patient had severe extensive injuries to the distal humerus and proximal ulna. Because of patient's severe closed head injury decision was made for temporary external fixation and closed reduction of the elbow. It is unclear if it would be safe for patient to be an a lateral decubitus position for an extensive left elbow reconstruction at this time. At this point attention was turned to external fixation. 2 pins were placed into the humeral shaft and 2 pins were placed into the ulna. Care was taken to avoid injury to the radial nerve during placement of the pins. An external fixator construct was created. At this point attention was turned to closure reduction. Gentle traction was applied. The elbow was manipulated to achieve a reasonable reduction. An external fixator construct was now tightened to maintain reduction. Fluoroscopy confirmed reasonable alignment of the elbow joint. At this point Sterile dressings were applied. The patient was transferred to intensive care in critical condition. Needle and sponge counts were correct. Jose Daniel Flores MD Nov 07, 2017 13:07
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
[2017-11-07] MEDS ORDERED: Post-op Orders (for Pharmacy) XX ONE (16:00)
[2017-11-07] MEDS: ERGOCALCIFEROL (VIT D2) 50,000 UNIT CAP PO SCH (16:38)
[2017-11-07 17:30] LABS: BICARBONATE 29.3 MEQ/L (21.0-32.0); CALCIUM 6.9 MG/DL (8.5-10.1); CREATININE 4.76 MG/DL (0.60-1.30); PHOSPHORUS 5.7 MG/DL (2.5-4.9)
[2017-11-07 17:45] LABS: CALCIUM-PROTEIN CORRECTED 8.1 MG/DL (8.5-10.1); TOTAL PROTEIN 4.9 GM/DL (6.4-8.2)
[2017-11-07] MEDS: SODIUM BICARBONATE 8.4% INJ 100 MEQ in SODIUM CHLOR 0.9% 1000 ML INJ 1,000 ML IV SCH (18:12)
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
--- NOTE | 2017-11-07 19:06 | RADRPT ---
EXAM DATE/TIME: 11/07/2017 12:41 [facility] COMPARISON: No previous studies available for comparison. INDICATIONS : Orif left tibia plateau. MEDICAL HISTORY : Trauma. SURGICAL HISTORY : Left femur. Ex Fix pelvis. ENCOUNTER: Subsequent ACUITY: 4 - 6 days PAIN SCORE: Non-responsive. LOCATION: Left Tib Fib. FINDINGS: 4 intraoperative views of the left knee demonstrates plate and screw fixation of comminuted tibial pl ateau fracture. There is near-anatomic alignment of the fracture fragments and the hardware appears w ell-positioned. A distal femoral plate and screw fixation is partially imaged in gross alignment. Pro ximal comminuted femoral fracture. CONCLUSION: 1. Status post left tibial ORIF, as above. Preston Cuellar MD on November 07, 2017 at 19:03 Board Certified Radiologist. This report was verified electronically.
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
[2017-11-08] VITALS (22 sets, daily range): BP systolic 123–156; BP diastolic 55–67; PULSE 75–91; RESP 16–18; TEMP 95.9–96.6; O2SAT 99–100
[2017-11-08] MEDS: ceFAZolin 2 GM PREMIX 50 ML IV SCH ×2 (00:34→10:03)
[2017-11-08] MEDS: LACTATED RINGER'S 1000 ML INJ 1,000 ML IV SCH (00:34)
[2017-11-08] MEDS: CHLORHEXIDINE GLUCONATE 2 % 1 PACK (2 CLOTHS) TOP SCH (04:00)
[2017-11-08 04:24] LABS: AUTOMATED NEUTROPHIL # 2.7 TH/MM3 (1.8-7.7); BASOPHIL % 1.1 % (0.0-2.0); EOSINOPHIL # 0.1 TH/MM3 (0-0.4); EOSINOPHIL % 2.7 % (0.0-4.0); LYMPH % 16.4 % (9.0-44.0); LYMPHOCYTE # 0.7 TH/MM3 (1.0-4.8); MEAN CELL VOLUME 81.1 FL (80.0-100.0); MEAN CORPUSCULAR HEMOGLOBIN 27.1 PG (27.0-34.0); MEAN CORPUSCULAR HGB CONC 33.5 % (32.0-36.0); MEAN PLATELET VOLUME 7.4 FL (7.0-11.0); MONO % 14.1 % (0.0-8.0); MONOCYTE # 0.6 TH/MM3 (0-0.9); NEUT % 65.7 % (16.0-70.0); PLATELET COUNT 145 TH/MM3 (150-450); RED BLOOD COUNT 2.26 MIL/MM3 (4.50-5.90); RED CELL DISTRIBUTION WIDTH 17.7 % (11.6-17.2); WHITE BLOOD COUNT 4.1 TH/MM3 (4.0-11.0)
[2017-11-08 04:37] LABS: HEMATOCRIT 18.3 % (39.0-51.0); HEMOGLOBIN 6.1 GM/DL (13.0-17.0)
[2017-11-08 04:43] LABS: BICARBONATE 28.8 MEQ/L (21.0-32.0); CALCIUM 6.9 MG/DL (8.5-10.1); CREATININE 4.55 MG/DL (0.60-1.30)
[2017-11-08] MEDS: INSULIN ASPART SUPPLEMENTAL SCALE SQ SCH ×4 (05:48→23:10)
--- NOTE | 2017-11-08 07:00 | RADRPT ---
EXAM DATE/TIME: 11/08/2017 06:39 [facility] COMPARISON: CHEST SINGLE AP, November 07, 2017, 5:30. INDICATIONS : Follow up trauma. Effusion. MEDICAL HISTORY : None. SURGICAL HISTORY : None. ENCOUNTER: Subsequent ACUITY: 4 - 6 days PAIN SCORE: Non-responsive. LOCATION: Bilateral chest FINDINGS: Mild consolidation and small effusions seen of both bases, slightly worse on the right and not signif icantly changed on the left. I don't see a pneumothorax. Heart size stable, upper limits of normal. Endotracheal tube tip is only about 1 cm above the jodi. Nasogastric tube courses into the stomach. There is a right internal jugular central venous catheter again seen with tip in the right atrium. CONCLUSION: 1. Mild consolidation and small effusion developing right base. 2. Mild consolidation and small effusion of the left base not significantly changed. 3. Endotracheal tube tip is close to the jodi. Eduard Rubin MD on November 08, 2017 at 6:57 Board Certified Radiologist. This report was verified electronically.
--- NOTE | 2017-11-08 07:25 | PD.ORT.PN ---
Subjective Subjective Remarks 1) Left Distal Femur Fx s/p ORIF by Dr Norton - 11/05/17 2) Bilateral Sacral and Rami fxs s/p exfix by Dr Norton - 11/05/17 3) Left Open 2nd Metacarpal Fx s/p I&D wound closure by Dr Norton - 11/05/17 4) Left Tibial Plateau Fx s/p ORIF by Dr Norton - 11/07/17 5) Left Distal Humerus and Olecranon Fxs s/p Exfix by Dr Norton - 11/07/17 Pt is intubated. RN at bedside. Objective Vitals Vital Signs Date Time Temp Pulse Resp B/P (MAP) Pulse Ox O2 Delivery O2 Flow Rate FiO2 11/08/17 07:11 96.3 83 16 143/57 100 11/08/17 06:00 82 11/08/17 04:07 100 40 11/08/17 04:00 96.4 81 16 138/55 (82) 100 11/08/17 04:00 40 11/08/17 04:00 81 11/08/17 02:00 80 11/08/17 01:10 100 40 11/08/17 00:00 79 11/08/17 00:00 40 11/08/17 00:00 96.1 79 16 136/56 (82) 100 11/07/17 22:00 80 11/07/17 20:00 95.9 81 16 131/58 (82) 100 11/07/17 20:00 78 11/07/17 20:00 40 11/07/17 19:39 100 40 11/07/17 19:00 100 Mechanical Ventilator 40 11/07/17 18:00 80 11/07/17 16:00 82 11/07/17 16:00 40 11/07/17 16:00 95.7 82 16 126/55 (78) 100 11/07/17 14:00 40 11/07/17 14:00 88 11/07/17 14:00 95.5 88 16 122/54 (76) 100 11/07/17 09:30 98 60 11/07/17 08:33 100 40 11/07/17 08:00 97.9 91 16 116/50 (72) 100 11/07/17 08:00 40 11/07/17 08:00 91 I/O 11/07/17 11/07/17 11/07/17 11/08/17 11/08/17 11/08/17 07:00 15:00 23:00 07:00 15:00 23:00 Intake Total 1178.3 ml 718 ml 330 ml 350 ml 250 ml Output Total 425 ml 450 ml 225 ml 500 ml Balance 753.3 ml 268 ml 105 ml -150 ml 250 ml Intake IV Total 1078.3 ml 718 ml 330 ml 50 ml Blood Product IV Normal Saline Flush 250 ml Other 100 ml 300 ml Output Urine Total 425 ml 300 ml 225 ml 500 ml Gastric Drainage Total 0 ml 0 ml Estimated Blood Loss 150 ml # Bowel Movements 0 0 0 Result Diagram: 11/08/1739911/08/17 040 Imaging Last 24 hours Impressions Chest X-Ray 11/05/17 0000 Signed Impressions: Service Date/Time: Sunday, November 05, 2017 02:04 - CONCLUSION: 1. Interval placement of right internal jugular central venous line with no pneumothorax. 2. Interval placement of nasogastric tube. 3. Abnormal opacity at left lung base with blunting of the costophrenic angle. Rajeev Fairchild MD Thoracic Spine CT 11/04/[id number] Signed Impressions: Service Date/Time: Saturday, November 04, 2017 21:45 - CONCLUSION: 1. Nondisplaced right T1-T5 spinous process fractures. 2. Bony central canal is patent without vertebral body fracture or subluxation. Preston Cuellar MD Pelvis X-Ray 11/04/[id number] Signed Impressions: Service Date/Time: Saturday, November 04, 2017 21:23 - CONCLUSION: 1. Right pubic rami and bilateral sacral fractures. Preston Cuellar MD Maxillofacial CT 11/04/172135 Signed Impressions: Service Date/Time: Saturday, November 04, 2017 21:40 - CONCLUSION: 1. Mildly depressed left orbital floor fracture with fractures of the lamina papyracea. 2. Multiple fractures involving the left maxilla. 3. Multiple nasal bone fractures. Rjaeev Fairchild MD Lumbar Spine CT 11/04/172135 Signed Impressions: Service Date/Time: Saturday, November 04, 2017 21:45 - CONCLUSION: 1. Left-sided transverse process fractures at L1-5. 2. Right transverse process fractures at L4 and L5. 3. Intact vertebral bodies without subluxation. Intact bony central canal. Preston Cuellar MD Head CT 11/04/[id number] Signed Impressions: Service Date/Time: Saturday, November 04, 2017 21:40 - CONCLUSION: 1. Abnormal. Left thalamic intra-axial hemorrhage with bilateral subarachnoid and intraventricular hemorrhage. 2. Findings consistent with contusion of the left frontoparietal high convexities. 3. Left facial bone fractures. Please see CT facial bone report for details. Preston Cuellar MD Chest X-Ray 11/04/172135 Signed Impressions: Service Date/Time: Saturday, November 04, 2017 21:23 - CONCLUSION: 1. ETT in good position. Preston Cuellar MD Cervical Spine CT 11/04/[id number] Signed Impressions: Service Date/Time: Saturday, November 04, 2017 21:41 - CONCLUSION: 1. Right transverse process fracture of C4-T2. Fractures extend through the transverse foramen at C7 and C4. Preston Cuellar MD Procedures 1) Left Distal Femur Fx s/p ORIF by Dr Norton - 11/05/17 2) Bilateral Sacral and Rami fxs s/p exfix by Dr Norton - 11/05/17 3) Left Open 2nd Metacarpal Fx s/p I&D wound closure by Dr Norton - 11/05/17 4) Left Tibial Plateau Fx s/p ORIF by Dr Norton - 11/07/17 5) Left Distal Humerus and Olecranon Fxs s/p Exfix by Dr Norton - 11/07/17 Objective Remarks LUE: +exfix. pin sites clean. +hand splint. LLE: +knee brace. dressings clean and dry. Pelvis: exfix intact. pin sites clean. minimal drainage Assessment & Plan Problem List: (1) Trauma ICD Codes: T14.90XA - Injury, unspecified, initial encounter Status: Acute (2) Femur fracture, left ICD Codes: S72.92XA - Unspecified fracture of left femur, initial encounter for closed fracture Status: Acute Qualifiers: Qualified Codes: S72.8X2A - Other fracture of left femur, initial encounter for closed fracture (3) Left elbow fracture ICD Codes: S42.402A - Unspecified fracture of lower end of left humerus, initial encounter for closed fracture Status: Acute Qualifiers: Qualified Codes: S42.402A - Unspecified fracture of lower end of left humerus, initial encounter for closed fracture (4) Left hand fracture ICD Codes: S62.92XA - Unspecified fracture of left wrist and hand, initial encounter for closed fracture Status: Acute Qualifiers: Qualified Codes: S62.92XB - Unspecified fracture of left wrist and hand, initial encounter for open fracture Assessment and Plan 1) Left Distal Femur Fx s/p ORIF by Dr Norton - 11/05/17 2) Bilateral Sacral and Rami fxs s/p exfix by Dr Norton - 11/05/17 3) Left Open 2nd Metacarpal Fx s/p I&D wound closure by Dr Norton - 11/05/17 4) Left Tibial Plateau Fx s/p ORIF by Dr Norton - 11/07/17 5) Left Distal Humerus and Olecranon Fxs s/p Exfix by Dr Norton - 11/07/17 POD 1 - Left elbow/left tibial plateau POD 3 - Left distal Femur -pin care BID of left elbow exfix and pelvic exfix -NWB to LLE and LUE -Daily dressing changes of left leg with xeroform/4x4/KRISTOPHER -knee brace to left leg at all times -Dr Morales for mgmt of left hand -will re-eval prognosis and decide if any further definitive mgmt needed of left elbow Ally Mayberry Nov 08, 2017 7:25 am
[2017-11-08] MEDS: CHLORHEXIDINE 0.12% (ORAL KIT) 15 ML CUP MT SCH ×2 (08:00→19:56)
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
[2017-11-08] MEDS: DOCUSATE SODIUM 100 MG CAP PO SCH ×2 (09:00→20:25)
[2017-11-08] MEDS: SODIUM BICARBONATE 8.4% INJ 100 MEQ in SODIUM CHLOR 0.9% 1000 ML INJ 1,000 ML IV SCH ×2 (09:50→23:10)
[2017-11-08] MEDS ORDERED: SODIUM CHLOR 0.9% 1000 ML INJ 1,000 ML IV SCH (10:00)
[2017-11-08] MEDS: levETIRAcetam INJ 500 MG in SODIUM CHLORIDE 0.9% INJ 100 ML IV SCH ×2 (10:02→20:24)
[2017-11-08] MEDS: FAMOTIDINE 20 MG/2 ML VIAL IV PUSH SCH ×2 (10:03→20:25)
[2017-11-08] MEDS: CHOLECALCIFEROL (VIT D3) 1000 UNIT TAB PO SCH (10:03)
[2017-11-08] MEDS: CALCIUM/VITAMIN D 250 MG/125 U TAB PO SCH ×3 (10:03→17:40)
[2017-11-08] MEDS: DOCUSATE SODIUM 50 MG/SENNA 8.6 MG TAB PO SCH ×2 (10:10→20:25)
[2017-11-08] MEDS: ACETAMINOPHEN/HYDROcodone 325 MG/10 MG TAB PO PRN (12:21)
[2017-11-08 12:47] LABS: HEMATOCRIT 24.3 % (39.0-51.0)
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
[2017-11-08] MEDS: SODIUM CHLOR 0.45% 1000 ML INJ 1,000 ML IV SCH (17:40)
[2017-11-08 19:41] LABS: BICARBONATE 29.9 MEQ/L (21.0-32.0); CREATININE 4.43 MG/DL (0.60-1.30)
[2017-11-08 20:07] LABS: CALCIUM-PROTEIN CORRECTED 7.9 MG/DL (8.5-10.1); TOTAL PROTEIN 5.3 GM/DL (6.4-8.2)
[2017-11-08] MEDS: ceFAZolin 1,000 MG/NS 100 ML IV SCH ×2 (21:27)
[2017-11-09] VITALS (20 sets, daily range): BP systolic 135–217; BP diastolic 55–104; PULSE 93–108; RESP 16–29; TEMP 97.9–100.2; O2SAT 96–100
[2017-11-09] MEDS: ACETAMINOPHEN/HYDROcodone 325 MG/10 MG TAB PO PRN (00:59)
[2017-11-09] MEDS: CHLORHEXIDINE GLUCONATE 2 % 1 PACK (2 CLOTHS) TOP SCH ×2 (04:00→23:27)
[2017-11-09 05:16] LABS: AUTOMATED NEUTROPHIL # 2.9 TH/MM3 (1.8-7.7); BASOPHIL % 0.6 % (0.0-2.0); EOSINOPHIL # 0.3 TH/MM3 (0-0.4); EOSINOPHIL % 5.3 % (0.0-4.0); HEMATOCRIT 23.5 % (39.0-51.0); HEMOGLOBIN 7.9 GM/DL (13.0-17.0); LYMPH % 18.7 % (9.0-44.0); LYMPHOCYTE # 0.9 TH/MM3 (1.0-4.8); MEAN CELL VOLUME 82.8 FL (80.0-100.0); MEAN CORPUSCULAR HEMOGLOBIN 27.8 PG (27.0-34.0); MEAN CORPUSCULAR HGB CONC 33.5 % (32.0-36.0); MEAN PLATELET VOLUME 7.5 FL (7.0-11.0); MONO % 16.7 % (0.0-8.0); MONOCYTE # 0.8 TH/MM3 (0-0.9); NEUT % 58.7 % (16.0-70.0); PLATELET COUNT 140 TH/MM3 (150-450); RED BLOOD COUNT 2.84 MIL/MM3 (4.50-5.90); RED CELL DISTRIBUTION WIDTH 16.8 % (11.6-17.2); WHITE BLOOD COUNT 4.9 TH/MM3 (4.0-11.0)
[2017-11-09 05:45] LABS: BICARBONATE 29.7 MEQ/L (21.0-32.0); CREATININE 4.34 MG/DL (0.60-1.30)
[2017-11-09 06:19] LABS: CALCIUM-PROTEIN CORRECTED 7.9 MG/DL (8.5-10.1); TOTAL PROTEIN 5.4 GM/DL (6.4-8.2)
[2017-11-09] MEDS: SODIUM CHLOR 0.45% 1000 ML INJ 1,000 ML IV SCH (06:39)
[2017-11-09] MEDS: INSULIN ASPART SUPPLEMENTAL SCALE SQ SCH ×4 (06:40→22:17)
[2017-11-09 07:59] LABS: OVALOCYTES 1+ (NORMAL)
[2017-11-09] MEDS: DOCUSATE SODIUM 100 MG CAP PO SCH ×2 (09:00→20:13)
[2017-11-09] MEDS: DOCUSATE SODIUM 50 MG/SENNA 8.6 MG TAB PO SCH ×2 (09:00→20:13)
[2017-11-09] MEDS: CHOLECALCIFEROL (VIT D3) 1000 UNIT TAB PO SCH (10:03)
[2017-11-09] MEDS: FAMOTIDINE 20 MG TAB PO SCH ×2 (10:03→20:13)
[2017-11-09] MEDS: CALCIUM/VITAMIN D 250 MG/125 U TAB PO SCH ×3 (10:04→17:20)
[2017-11-09] MEDS: LACTULOSE SYRUP 20 GM/30 ML CUP PO SCH (10:04)
[2017-11-09] MEDS: ceFAZolin 1,000 MG/NS 100 ML IV SCH ×4 (10:07→20:13)
[2017-11-09] MEDS: levETIRAcetam INJ 500 MG in SODIUM CHLORIDE 0.9% INJ 100 ML IV SCH ×2 (10:08→20:14)
[2017-11-09] MEDS: CHLORHEXIDINE 0.12% (ORAL KIT) 15 ML CUP MT SCH ×2 (10:09→20:00)
[2017-11-09] MEDS: ACETAMINOPHEN/HYDROcodone 325 MG/10 MG TAB PO SCH ×3 (11:50→23:26)
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
--- NOTE | 2017-11-09 14:38 | OTSOAPIP ---
TIME SESSION COMPLETED: AM TREATMENT TIME: 0 MINS. CHART REVIEWED. PATIENT WAS NOT AVAILABLE DUE TO NURSING HYGIENE CARE. PLAN: WILL SEE PATIENT WHEN ABLE OR NEXT TREATMENT DAY Therapist: EVELYN HALL/Saw Signature on file
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
[2017-11-09] MEDS: DEXTROSE 5% IN WATE 1000ML INJ 1,000 ML IV SCH ×2 (15:13→23:27)
[2017-11-09] MEDS: hydrALAZINE HCL 20 MG/ML VIAL IV PRN (21:40)
[2017-11-09] MEDS: fentaNYL 2,500 MCG/NS 250 ML IV PRN (22:48)
[2017-11-09] MEDS: LABETALOL HCL 100 MG/20 ML VIAL IV PUSH PRN (23:26)
[2017-11-10] VITALS (13 sets, daily range): BP systolic 123–137; BP diastolic 52–79; PULSE 76–98; RESP 16–17; TEMP 97.6–99.7; O2SAT 96–100
[2017-11-10] MEDS: hydrALAZINE HCL 20 MG/ML VIAL IV PRN (02:02)
[2017-11-10] MEDS: LABETALOL HCL 100 MG/20 ML VIAL IV PUSH PRN (04:00)
[2017-11-10 04:20] LABS: AUTOMATED NEUTROPHIL # 3.5 TH/MM3 (1.8-7.7); BASOPHIL % 0.7 % (0.0-2.0); EOSINOPHIL # 0.3 TH/MM3 (0-0.4); EOSINOPHIL % 4.6 % (0.0-4.0); HEMATOCRIT 23.7 % (39.0-51.0); HEMOGLOBIN 7.8 GM/DL (13.0-17.0); LYMPH % 16.1 % (9.0-44.0); MEAN CELL VOLUME 83.6 FL (80.0-100.0); MEAN CORPUSCULAR HEMOGLOBIN 27.6 PG (27.0-34.0); MEAN PLATELET VOLUME 7.4 FL (7.0-11.0); MONO % 19.3 % (0.0-8.0); MONOCYTE # 1.1 TH/MM3 (0-0.9); NEUT % 59.3 % (16.0-70.0); PLATELET COUNT 140 TH/MM3 (150-450); RED BLOOD COUNT 2.83 MIL/MM3 (4.50-5.90); WHITE BLOOD COUNT 5.9 TH/MM3 (4.0-11.0)
[2017-11-10 04:46] LABS: ALBUMIN 1.4 GM/DL (3.4-5.0); ALKALINE PHOSPHATASE 105 U/L (45-117); ALT (GPT) LESS THAN 6 U/L (12-78); AST (GOT) 20 U/L (15-37); BLOOD UREA NITROGEN 47 MG/DL (7-18); CALCIUM 7.3 MG/DL (8.5-10.1); CALCIUM-PROTEIN CORRECTED 8.1 MG/DL (8.5-10.1); CHLORIDE 118 MEQ/L (98-107); CREATININE 4.16 MG/DL (0.60-1.30); GLOMERULAR FILTRATION RATE 18 ML/MIN (>89); GLUCOSE,RANDOM 230 MG/DL (74-106); MAGNESIUM 1.8 MG/DL (1.5-2.5); PHOSPHORUS 3.6 MG/DL (2.5-4.9); SODIUM (NA) 153 MEQ/L (136-145); TOTAL BILIRUBIN ADULT 0.4 MG/DL (0.2-1.0); TOTAL PROTEIN 5.6 GM/DL (6.4-8.2)
[2017-11-10] MEDS: INSULIN ASPART SUPPLEMENTAL SCALE SQ SCH ×4 (05:22→23:00)
[2017-11-10] MEDS: ACETAMINOPHEN/HYDROcodone 325 MG/10 MG TAB PO SCH ×4 (05:33→23:54)
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
[2017-11-10] MEDS: DOCUSATE SODIUM 100 MG CAP PO SCH ×2 (07:25→20:10)
[2017-11-10] MEDS: LACTULOSE SYRUP 20 GM/30 ML CUP PO SCH (07:25)
[2017-11-10] MEDS: DOCUSATE SODIUM 50 MG/SENNA 8.6 MG TAB PO SCH ×2 (07:26→20:10)
[2017-11-10] MEDS: CALCIUM/VITAMIN D 250 MG/125 U TAB PO SCH ×3 (07:26→18:00)
[2017-11-10] MEDS: CHOLECALCIFEROL (VIT D3) 1000 UNIT TAB PO SCH (07:26)
[2017-11-10] MEDS: FAMOTIDINE 20 MG TAB PO SCH ×2 (07:26→20:10)
[2017-11-10] MEDS: CHLORHEXIDINE 0.12% (ORAL KIT) 15 ML CUP MT SCH ×2 (07:58→20:00)
[2017-11-10] MEDS: levETIRAcetam INJ 500 MG in SODIUM CHLORIDE 0.9% INJ 100 ML IV SCH ×2 (07:58→20:10)
--- NOTE | 2017-11-10 08:29 | HHI.PR ---
Neuropsych Emotional Emotional: UnabletoAssess: Emotional, Anxious/Fearful, Depressed/Sad, Hostile/ Resentful, Irritable/Angry/Frustrate, Labile, Constricted/Blunted Behavior Behavior: Intact: Impulsive/Agitated, Unable to Asses: Behavior, Coping/ Acceptance, Cooperative w/ Treatment, Motivation, Frustration Tolerance/[place] Cognitive Cognitive: Unable to Asses: Cognitive, Attention/Concentration, Confused/ Orientation, Insight/Awareness, Judgement/Problem-Solving, Memory Psychosocial Psychosocial: Unable to Asses: Psychosocial, Family/Other Adjustment, Realistic Expectation, Self-Esteem/Confidence Progress Notes/Response to Tx Contents of Sessions: Adjustment, Level of Consciousness Time with Patient: 15 minutes Premorbid psychological status Premorbid Cognitive, Emotional and Behavioral Status: Unable to Assess. The patient has unknown years of education and an unknown work history prior to this injury. The patient has no known prior] psychiatric difficulties, as described above. Substance abuse history is unknown. Behavioral Reactions of Patient and Family/Support System: Deferred. The patients family is experiencing ongoing issues of adjustment given the nature of the injury, and this aspect of recovery will require ongoing monitoring. Emotional/Behavioral Status of Patient and Family/Support System: Deferred. Pertinent issues, if appropriate to this patients clinical care, are described in detail above. Maximizing acute care outcome It is recommended that the patient be monitored for emergent behavioral impulsivity as the medical condition evolves. This patients neuropathological challenges may limit his rehabilitation potential going forward, and these challenges will require specialized therapeutic skills to maximize outcome. Additionally, the patients family is experiencing ongoing issues of adjustment given the traumatic nature of the injury, and they may benefit from ongoing psychological assistance. At this point in the recovery process, the patient does not have cognitive capacity as the patient is unable to understand a situation and its likely consequences, nor is he able to manipulate information rationally. Cognitive capacity will be assessed throughout the recovery process. Anticipated Problems Ongoing areas of concern will include behavioral impulsivity, lack of insight and judgment, which is expected to improve with time and treatment. Given the severity of the patient's injuries it is my clinical opinion that this patient will be unable to return to any type of productive employment for at least one year, perhaps longer and likely never. This patient is not considered safe to discharge home without supervision. Treatment Plan This clinician will continue to follow with you throughout the course of this patients critical care treatment, and I will be available to meet with the patients family/support system to facilitate their understanding and the ongoing care of their family member. The goals of neuropsychological intervention shall be both educational and supportive to the family/support system as is deemed clinically appropriate. [facility] Level: I:No response-total assistance Diagnosis: (1) Major neurocognitive disorder as late effect of traumatic brain injury without behavioral disturbance Progress Note Narrative PTD 6. The patient remains neurobehaviorally unchanged. There is no improvement on sedation vacation. In light of the significant challenges this patient faces, he has no reasonable chance for a meaningful neurobehavioral recovery. He remains at [facility]. I will follow. Jens Strickland PhD Nov 10, 2017 8:29 am
[2017-11-10] MEDS: fentaNYL 2,500 MCG/NS 250 ML IV PRN (08:50)
[2017-11-10] MEDS: ceFAZolin 1,000 MG/NS 100 ML IV SCH ×2 (09:22)
[2017-11-10] MEDS: DEXTROSE 5% IN WATE 1000ML INJ 1,000 ML IV SCH ×2 (09:22→19:45)
[2017-11-10] MEDS: METOPROLOL TARTRATE 5 MG/5 ML VIAL IV PUSH SCH ×3 (11:27→22:00)
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
[2017-11-10] MEDS ORDERED: PHENYLEPH/NS 1000 MCG/10 ML SYR IV ONE (12:00)
[2017-11-10] MEDS ORDERED: LACTATED RINGER'S 1000 ML INJ 1,000 ML IV ONE (12:00)
[2017-11-10] MEDS ORDERED: DEXAMETHASONE SOD PHOS 4 MG/ML VIAL IV ONE (12:00)
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
[2017-11-10] MEDS ORDERED: LIDOCAINE 2%/EPINEPHrine PF 1:200,000 20ML SDV ONE (13:15)
[2017-11-10] MEDS ORDERED: CHLORHEXIDINE GLUCONATE 0.12% 15 ML CUP ONE (13:15)
[2017-11-10] MEDS ORDERED: BACITRACIN TOP OINT 15 GM TUBE ONE (13:15)
[2017-11-10] MEDS ORDERED: BALANCED SALT SOLN OPHT IRRIG 15 ML BTL ONE (13:31)
[2017-11-10] MEDS ORDERED: NEOMYCIN/POLYMYXIN 1 ML G.U. IRRIGANT ONE (13:36)
[2017-11-10] MEDS ORDERED: fentaNYL CITRATE 250 MCG/5 ML AMP ONE (13:41)
[2017-11-10] MEDS ORDERED: ARTIFICIAL TEARS OPTH OINT 3.5 APPLIC/3.5 GM TUBO ONE (14:04)
[2017-11-10] MEDS ORDERED: LIDOCAINE HCL 2% 50 ML VIAL ONE (14:39)
[2017-11-10] MEDS ORDERED: BUPIVACAINE HCL PF 0.5% 30 ML VIAL ONE (14:39)
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
--- NOTE | 2017-11-10 15:52 | HHI.PR ---
Immediate Post Op Note Procedure Date: Nov 10, 2017 Pre Op Diagnosis: left orbital floor fracture left zygomatic maxillary complex fracture nasal bone fracture Post Op Diagnosis: mark Surgeon: Dakota Montenegro Non Cdl Driver(s): jose a voss Procedure: ORIF left zygomatic maxillary complex fracture reconstruction of left orbital floor fracture KLS mesh closed reduction nasal bone fracture Complications: none Estimated blood loss: 5cc Anesthesia: General, Local (2%lidocaine with 1:200,000 epi 6cc) Drains: None Patient Condition: Critical Date/Time of Procedure: SEE SURGICAL CARE RECORD Dakota Montenegro DMD Nov 10, 2017 15:52
--- NOTE | 2017-11-10 18:03 | PD.OP ---
Operative Report Preoperative Diagnosis: (1) fracture second metacarpal neck/headleft hand (2) Laceration of left hand involving tendon (3) Fracture of proximal phalanx of left index finger Postoperative Diagnosis: (1) Laceration of left hand involving tendon (2) fracture second metacarpal neck/headleft hand (3) laceration extensor tendon left middle finger (4) Fracture of proximal phalanx of left index finger Procedure: closed reduction and external fixator application second metacarpal left hand wash debridement and closure laceration left hand Anesthesia: general Surgeon: Van Sarmiento Vis[employer] Services Assistant(s): jose Operation and Findings: comminuted fracture second metacarpal neck/head open left hand segmental loss EDC tendon left middle finger zone left hand multiple lacerations left hand Van Sarmiento MD Nov 10, 2017 18:03
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
[2017-11-10] MEDS: CHLORHEXIDINE GLUCONATE 2 % 1 PACK (2 CLOTHS) TOP SCH (19:44)
[2017-11-11] VITALS (18 sets, daily range): BP systolic 119–142; BP diastolic 61–75; PULSE 70–84; RESP 16; TEMP 96.8–98.6; O2SAT 95–100
[2017-11-11] MEDS: fentaNYL 2,500 MCG/NS 250 ML IV PRN (01:07)
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
[2017-11-11] MEDS: METOPROLOL TARTRATE 5 MG/5 ML VIAL IV PUSH SCH ×4 (03:44→21:16)
[2017-11-11] MEDS: INSULIN ASPART SUPPLEMENTAL SCALE SQ SCH ×4 (05:00→22:59)
[2017-11-11] MEDS: ACETAMINOPHEN/HYDROcodone 325 MG/10 MG TAB PO SCH ×4 (05:35→22:59)
[2017-11-11] MEDS: DEXTROSE 5% IN WATE 1000ML INJ 1,000 ML IV SCH (05:45)
[2017-11-11 06:14] LABS: AUTOMATED NEUTROPHIL # 4.8 TH/MM3 (1.8-7.7); BASOPHIL % 0.1 % (0.0-2.0); HEMOGLOBIN 7.6 GM/DL (13.0-17.0); LYMPH % 9.9 % (9.0-44.0); LYMPHOCYTE # 0.6 TH/MM3 (1.0-4.8); MEAN CELL VOLUME 83.7 FL (80.0-100.0); MEAN CORPUSCULAR HEMOGLOBIN 27.8 PG (27.0-34.0); MEAN CORPUSCULAR HGB CONC 33.2 % (32.0-36.0); MEAN PLATELET VOLUME 8.1 FL (7.0-11.0); MONO % 9.1 % (0.0-8.0); MONOCYTE # 0.5 TH/MM3 (0-0.9); NEUT % 80.9 % (16.0-70.0); PLATELET COUNT 139 TH/MM3 (150-450); RED BLOOD COUNT 2.74 MIL/MM3 (4.50-5.90); RED CELL DISTRIBUTION WIDTH 17.8 % (11.6-17.2); WHITE BLOOD COUNT 5.9 TH/MM3 (4.0-11.0)
[2017-11-11 06:23] LABS: BICARBONATE 28.4 MEQ/L (21.0-32.0); CREATININE 4.11 MG/DL (0.60-1.30)
--- NOTE | 2017-11-11 08:24 | HHI.PR ---
Neuropsych Emotional Emotional: UnabletoAssess: Emotional, Anxious/Fearful, Depressed/Sad, Hostile/ Resentful, Irritable/Angry/Frustrate, Labile, Constricted/Blunted Behavior Behavior: Intact: Impulsive/Agitated, Unable to Asses: Behavior, Coping/ Acceptance, Cooperative w/ Treatment, Motivation, Frustration Tolerance/[place], Suicidal/Homicidal Risk Cognitive Cognitive: Unable to Asses: Cognitive, Attention/Concentration, Confused/ Orientation, Insight/Awareness, Judgement/Problem-Solving, Memory Psychosocial Psychosocial: Severe: Psychosocial, Family/Other Adjustment, Realistic Expectation, Unable to Asses: Self-Esteem/Confidence Progress Notes/Response to Tx Contents of Sessions: Adjustment, Level of Consciousness Time with Patient: 15 minutes Premorbid psychological status Premorbid Cognitive, Emotional and Behavioral Status: Unable to Assess. The patient has unknown years of education and an unknown work history prior to this injury. The patient has no known prior] psychiatric difficulties, as described above. Substance abuse history is unknown. Behavioral Reactions of Patient and Family/Support System: Deferred. The patients family is experiencing ongoing issues of adjustment given the nature of the injury, and this aspect of recovery will require ongoing monitoring. Emotional/Behavioral Status of Patient and Family/Support System: Deferred. Pertinent issues, if appropriate to this patients clinical care, are described in detail above. Maximizing acute care outcome It is recommended that the patient be monitored for emergent behavioral impulsivity as the medical condition evolves. This patients neuropathological challenges may limit his rehabilitation potential going forward, and these challenges will require specialized therapeutic skills to maximize outcome. Additionally, the patients family is experiencing ongoing issues of adjustment given the traumatic nature of the injury, and they may benefit from ongoing psychological assistance. At this point in the recovery process, the patient does not have cognitive capacity as the patient is unable to understand a situation and its likely consequences, nor is he able to manipulate information rationally. Cognitive capacity will be assessed throughout the recovery process. Anticipated Problems Ongoing areas of concern will include behavioral impulsivity, lack of insight and judgment, which is expected to improve with time and treatment. Given the severity of the patient's injuries it is my clinical opinion that this patient will be unable to return to any type of productive employment for at least one year, perhaps longer and likely never. This patient is not considered safe to discharge home without supervision. Treatment Plan This clinician will continue to follow with you throughout the course of this patients critical care treatment, and I will be available to meet with the patients family/support system to facilitate their understanding and the ongoing care of their family member. The goals of neuropsychological intervention shall be both educational and supportive to the family/support system as is deemed clinically appropriate. [facility] Level: I:No response-total assistance Diagnosis: (1) Major neurocognitive disorder as late effect of traumatic brain injury without behavioral disturbance Progress Note Narrative PTD 7. There is no neurobehavioral improvement. The patient remains intubated and sedated. Palliative care was consulted. Family wishes aggressive treatment going forward in spite of the fact that this patient has a 90% mortality and a 100% morbidity. This patient has no reasonable chance for any type of neurobehavioral recovery, echoing trauma surgeon's assessment of 100% morbidity in this patient cohort. The patient is [place]. I will follow. Jens Strickland PhD Nov 11, 2017 8:24 am
[2017-11-11] MEDS: CALCIUM/VITAMIN D 250 MG/125 U TAB PO SCH ×3 (08:41→17:03)
[2017-11-11] MEDS: FAMOTIDINE 20 MG TAB PO SCH ×2 (08:41→20:51)
[2017-11-11] MEDS: LACTULOSE SYRUP 20 GM/30 ML CUP PO SCH (08:42)
[2017-11-11] MEDS: DOCUSATE SODIUM 100 MG CAP PO SCH ×2 (08:42→20:51)
[2017-11-11] MEDS: CHLORHEXIDINE 0.12% (ORAL KIT) 15 ML CUP MT SCH ×2 (08:42→20:00)
[2017-11-11] MEDS: DOCUSATE SODIUM 50 MG/SENNA 8.6 MG TAB PO SCH ×2 (08:42→20:51)
[2017-11-11] MEDS: levETIRAcetam INJ 500 MG in SODIUM CHLORIDE 0.9% INJ 100 ML IV SCH ×2 (08:42→20:52)
[2017-11-11] MEDS: CHOLECALCIFEROL (VIT D3) 1000 UNIT TAB PO SCH (08:42)
--- NOTE | 2017-11-11 09:15 | MG ---
cc: Eamon Calero MD HISTORY OF PRESENT ILLNESS: An EEG was obtained on this 63-year-old male patient being evaluated for altered mentation. The patient is intubated. Medications include Keppra. DESCRIPTION: The EEG is showing a lot of low amplitude beta rhythms diffusely. There was lack of activity and a lack of reactive background type of findings. There is some EKG artifact and photic stimulation disclosed no significant change. INTERPRETATION: Moderate to severe EEG abnormality because of nonreactive low amplitude background rhythms suggesting a moderate to severe diffuse disturbance of cerebral function. No epileptiform features present. Eamon Calero MD [facility]/ , 06:48 PM , 09:32 PM
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
--- NOTE | 2017-11-11 13:31 | HHI.HCPN ---
Reason for visit a. To assist with evaluation and management of symptoms including: Encephalopathy, pain b. To assist medical decision maker(s) with: better understanding of current medical conditions; weighing benefits/burdens of medical treatment options; making medical treatment decisions. Subjective/Interval History Patient remains unresponsive status post closed reduction and external fixation of left hand, second metacarpal and open reduction, internal fixation of the left zygomaticomaxillary complex fracture, reconstruction of the left orbital floor fracture with talus mesh and closed reduction of the nasal bone fracture on 11/10. Patient has been off sedation since 11/05 when propofol was stopped. He has since received some small doses of fentanyl for pain management, now on scheduled Ripley with no other sedating medications. [employer] Conservator service is following with the trauma team. Nephrology consultation shows stable creatinine, GFR of 18 mL/minute, adequate urine output with improving hypernatremia. No urgent need for dialysis. Neurosurgery note she done 11/10 without epileptiform features, moderate to severe diffuse disturbance of cerebral function. Patient off sedation. Neuropsychology notes that the patient has no reasonable chance for any type of neuro behavioral recovery in places the patient at [place] level 1 scale, which measures the levels of awareness, cognition behavior and interaction with the environment. Level One indicates no response to those. Patient is seen today intubated, not sedated, not responding to deep nailbed pressure, sternal rub, verbal or tactile stimuli. . Family/friend interactions I was contacted by his daughter today by telephone for further discussion of trach and PEG decision. This was discussed yesterday with her and she was very supportive of continued aggressive care. Today she is asking if there are any other options available. 16:25: Met with daughter and her academic tutor, Guillermo, and his . Reviewed patient' s clinical progress, experts opinions, assessment findings, clinical data to include EEG findings. Reviewed prognostication's from consultants and specialists. Discussed potential complications of wounds, infections, pneumonia and clinical decline. Discussed scenario of what patient's life might look like if family chooses to proceed with aggressive care. Also reviewed the alternative possibility of withdrawal of life support and gave anticipatory guidance regarding that. Answered multiple questions from family regarding his clinical prognosis. Provided palliative care contact information to the academic tutor in case further questions should arise. Daughter states that she wishes to consider her options for a couple of days and will contact me. I did discuss the timeframe for tracheostomy and PEG tube placement and they are aware that decision needs to be made soon. . Advance Directives Living Will: Never completed Health Care Surrogate: Never completed Durable Power of Alterations Supervisor: Never completed Advance Directive Specifics Health Care Surrogate(s): No healthcare surrogate identified. . Documented care wishes: No documented healthcare wishes. . Objective Vital Signs Date Time Temp Pulse Resp B/P (MAP) Pulse Ox O2 Delivery O2 Flow Rate FiO2 11/11/17 12:00 71 11/11/17 12:00 40 11/11/17 12:00 97.2 71 16 130/75 (93) 98 11/11/17 11:18 100 40 11/11/17 10:00 75 11/11/17 08:03 95 40 11/11/17 08:00 98.6 79 16 136/61 (86) 98 11/11/17 08:00 79 11/11/17 08:00 40 11/11/17 06:00 72 11/11/17 04:29 100 40 11/11/17 04:00 70 11/11/17 04:00 96.8 70 16 142/66 (91) 100 11/11/17 04:00 40 11/11/17 02:00 78 11/11/17 00:00 96.8 70 16 142/64 (90) 100 11/11/17 00:00 70 11/11/17 00:00 40 11/10/17 23:12 98 40 11/10/17 22:00 78 11/10/17 20:06 100 40 11/10/17 20:00 97.6 76 16 137/79 (98) 100 11/10/17 20:00 40 11/10/17 20:00 76 11/10/17 13:30 100 100 Intake & Output 11/11/17 11/11/17 07:00 19:00 Intake Total 1116 ml 305 ml Output Total 350 ml Balance 766 ml 305 ml Intake IV Total 996 ml 305 ml Tube Feeding 0 ml Tube Irrigant 120 ml Output Urine Total 350 ml Gastric Drainage Total 0 ml # Bowel Movements 1 Physical Exam CONSTITUTIONAL/GENERAL: This is an adequately nourished patient, intubated, sedated, unresponsive. TUBES/LINES/DRAINS: Right IJ triple-lumen, right radial arterial line, right ACF PIV, Guy catheter, ETT, OGT. SKIN: No jaundice, rashes, or lesions. External fixators to pelvis and left arm. Left arm and left leg in splint. HEAD: Atraumatic. Normocephalic. EYES: Pupils 2 mm equal and round. Positive scleral edema. ENT: intubated, OG tube. NECK: In Putney collar. CARDIOVASCULAR: Regular rate and rhythm without murmurs, gallops, or rubs. No JVD. Peripheral pulses symmetric. RESPIRATORY/CHEST: Lungs clear bilaterally. Mechanically ventilated. GASTROINTESTINAL: Abdomen soft, nondistended. No hepato-splenomegaly, or palpable masses. Bowel sounds present. GENITOURINARY: Without palpable bladder distension. Guy catheter in place. MUSCULOSKELETAL: Left arm in surgical wrap, splint with external fixator. Pelvic fixator, left lower extremity in splint, surgical dressings. NEUROLOGICAL: Unresponsive. PSYCHIATRIC: Unresponsive . Diagnostic Tests Laboratory Laboratory Tests Test 11/08/17 18:45 11/09/17 05:00 11/09/17 05:18 11/10/17 03:55 Blood Urea Nitrogen 56 MG/DL (7-18) 55 MG/DL (7-18) 47 MG/DL (7-18) Creatinine 4.43 MG/DL (0.60-1.30) 4.34 MG/DL (0.60-1.30) 4.16 MG/DL (0.60-1.30) Random Glucose 192 MG/DL (74-106) 222 MG/DL (74-106) 230 MG/DL (74-106) Total Protein 5.3 GM/DL (6.4-8.2) 5.4 GM/DL (6.4-8.2) 5.6 GM/DL (6.4-8.2) Calcium Level 7.0 MG/DL (8.5-10.1) 7.0 MG/DL (8.5-10.1) 7.3 MG/DL (8.5-10.1) Sodium Level 155 MEQ/L (136-145) 155 MEQ/L (136-145) 153 MEQ/L (136-145) Potassium Level 3.4 MEQ/L (3.5-5.1) 3.7 MEQ/L (3.5-5.1) 3.8 MEQ/L (3.5-5.1) Chloride Level 120 MEQ/L (98-107) 120 MEQ/L (98-107) 118 MEQ/L (98-107) Carbon Dioxide Level 29.9 MEQ/L (21.0-32.0) 29.7 MEQ/L (21.0-32.0) 31.0 MEQ/L (21.0-32.0) Anion Gap 5 MEQ/L (5-15) 5 MEQ/L (5-15) 4 MEQ/L (5-15) Estimat Glomerular Filtration Rate 17 ML/MIN (>89) 17 ML/MIN (>89) 18 ML/MIN (>89) Protein Corrected Calcium 7.9 MG/DL (8.5-10.1) 7.9 MG/DL (8.5-10.1) 8.1 MG/DL (8.5-10.1) White Blood Count 4.9 TH/MM3 (4.0-11.0) 5.9 TH/MM3 (4.0-11.0) Red Blood Count 2.84 MIL/MM3 (4.50-5.90) 2.83 MIL/MM3 (4.50-5.90) Hemoglobin 7.9 GM/DL (13.0-17.0) 7.8 GM/DL (13.0-17.0) Hematocrit 23.5 % (39.0-51.0) 23.7 % (39.0-51.0) Mean Corpuscular Volume 82.8 FL (80.0-100.0) 83.6 FL (80.0-100.0) Mean Corpuscular Hemoglobin 27.8 PG (27.0-34.0) 27.6 PG (27.0-34.0) Mean Corpuscular Hemoglobin Concent 33.5 % (32.0-36.0) 33.0 % (32.0-36.0) Red Cell Distribution Width 16.8 % (11.6-17.2) 17.0 % (11.6-17.2) Platelet Count 140 TH/MM3 (150-450) 140 TH/MM3 (150-450) Mean Platelet Volume 7.5 FL (7.0-11.0) 7.4 FL (7.0-11.0) Neutrophils (%) (Auto) 58.7 % (16.0-70.0) 59.3 % (16.0-70.0) Lymphocytes (%) (Auto) 18.7 % (9.0-44.0) 16.1 % (9.0-44.0) Monocytes (%) (Auto) 16.7 % (0.0-8.0) 19.3 % (0.0-8.0) Eosinophils (%) (Auto) 5.3 % (0.0-4.0) 4.6 % (0.0-4.0) Basophils (%) (Auto) 0.6 % (0.0-2.0) 0.7 % (0.0-2.0) Neutrophils # (Auto) 2.9 TH/MM3 (1.8-7.7) 3.5 TH/MM3 (1.8-7.7) Lymphocytes # (Auto) 0.9 TH/MM3 (1.0-4.8) 1.0 TH/MM3 (1.0-4.8) Monocytes # (Auto) 0.8 TH/MM3 (0-0.9) 1.1 TH/MM3 (0-0.9) Eosinophils # (Auto) 0.3 TH/MM3 (0-0.4) 0.3 TH/MM3 (0-0.4) Basophils # (Auto) 0.0 TH/MM3 (0-0.2) 0.0 TH/MM3 (0-0.2) CBC Comment AUTO DIFF DIFF FINAL Differential Comment FINAL DIFF MANUAL Platelet Estimate LOW (NORMAL) Platelet Morphology Comment NORMAL (NORMAL) Ovalocytes 1+ (NORMAL) Blood Gas Puncture Site UNIQUE Blood Gas Patient Temperature 98.6 Blood Gas HCO3 26 mmol/L (22-26) Blood Gas Base Excess 1.2 mmol/L (-2-2) Blood Gas Oxygen Saturation 96 % (90-100) Arterial Blood pH 7.39 (7.380-7.420) Arterial Blood Partial Pressure CO2 44 mmHg (38-42) Arterial Blood Partial Pressure O2 100 mmHg (61-120) Arterial Blood Oxygen Content 10.0 Vol % (12.0-20.0) Arterial Blood Carboxyhemoglobin 1.6 % (0-4) Arterial Blood Methemoglobin 0.7 % (0-2) Blood Gas Hemoglobin 7.3 G/DL (12.0-16.0) Oxygen Delivery Device VENTILATOR Blood Gas Ventilator Setting SEE COMMENT Blood Gas Inspired Oxygen 40 % Albumin 1.4 GM/DL (3.4-5.0) Phosphorus Level 3.6 MG/DL (2.5-4.9) Magnesium Level 1.8 MG/DL (1.5-2.5) Alkaline Phosphatase 105 U/L (45-117) Aspartate Amino Transf (AST/SGOT) 20 U/L (15-37) Alanine Aminotransferase (ALT/SGPT) LESS THAN 6 U/L (12-78) Total Bilirubin 0.4 MG/DL (0.2-1.0) Test 11/10/17 05:26 11/11/17 04:45 11/11/17 05:50 Blood Gas Puncture Site ART LINE ART LINE Blood Gas Patient Temperature 98.6 98.6 Blood Gas HCO3 26 mmol/L (22-26) 23 mmol/L (22-26) Blood Gas Base Excess 1.5 mmol/L (-2-2) -0.7 mmol/L (-2-2) Blood Gas Oxygen Saturation 96 % (90-100) 97 % (90-100) Arterial Blood pH 7.40 (7.380-7.420) 7.42 (7.380-7.420) Arterial Blood Partial Pressure CO2 43 mmHg (38-42) 37 mmHg (38-42) Arterial Blood Partial Pressure O2 113 mmHg (61-120) 142 mmHg (61-120) Arterial Blood Oxygen Content 11.4 Vol % (12.0-20.0) 14.1 Vol % (12.0-20.0) Arterial Blood Carboxyhemoglobin 1.7 % (0-4) 1.6 % (0-4) Arterial Blood Methemoglobin 0.8 % (0-2) 0.8 % (0-2) Blood Gas Hemoglobin 8.2 G/DL (12.0-16.0) 10.2 G/DL (12.0-16.0) Oxygen Delivery Device VENT VENTILATOR Blood Gas Ventilator Setting SEE COMMENTS /IT 1.0 5 PEEP Blood Gas Inspired Oxygen 40 % 40 % White Blood Count 5.9 TH/MM3 (4.0-11.0) Red Blood Count 2.74 MIL/MM3 (4.50-5.90) Hemoglobin 7.6 GM/DL (13.0-17.0) Hematocrit 23.0 % (39.0-51.0) Mean Corpuscular Volume 83.7 FL (80.0-100.0) Mean Corpuscular Hemoglobin 27.8 PG (27.0-34.0) Mean Corpuscular Hemoglobin Concent 33.2 % (32.0-36.0) Red Cell Distribution Width 17.8 % (11.6-17.2) Platelet Count 139 TH/MM3 (150-450) Mean Platelet Volume 8.1 FL (7.0-11.0) Neutrophils (%) (Auto) 80.9 % (16.0-70.0) Lymphocytes (%) (Auto) 9.9 % (9.0-44.0) Monocytes (%) (Auto) 9.1 % (0.0-8.0) Eosinophils (%) (Auto) 0.0 % (0.0-4.0) Basophils (%) (Auto) 0.1 % (0.0-2.0) Neutrophils # (Auto) 4.8 TH/MM3 (1.8-7.7) Lymphocytes # (Auto) 0.6 TH/MM3 (1.0-4.8) Monocytes # (Auto) 0.5 TH/MM3 (0-0.9) Eosinophils # (Auto) 0.0 TH/MM3 (0-0.4) Basophils # (Auto) 0.0 TH/MM3 (0-0.2) CBC Comment DIFF FINAL Differential Comment Blood Urea Nitrogen 58 MG/DL (7-18) Creatinine 4.11 MG/DL (0.60-1.30) Random Glucose 289 MG/DL (74-106) Calcium Level 8.0 MG/DL (8.5-10.1) Sodium Level 146 MEQ/L (136-145) Potassium Level 4.7 MEQ/L (3.5-5.1) Chloride Level 112 MEQ/L (98-107) Carbon Dioxide Level 28.4 MEQ/L (21.0-32.0) Anion Gap 6 MEQ/L (5-15) Estimat Glomerular Filtration Rate 18 ML/MIN (>89) Result Diagram: 11/11/17 0550 11/11/17 0550 Imaging Last Impressions Chest X-Ray 11/08/17 0000 Signed Impressions: Service Date/Time: Wednesday, November 08, 2017 06:39 - CONCLUSION: 1. Mild consolidation and small effusion developing right base. 2. Mild consolidation and small effusion of the left base not significantly changed. 3. Endotracheal tube tip is close to the jodi. Eduard Rubin MD Tibia/Fibula X-Ray 11/07/17 0000 Signed Impressions: Service Date/Time: Tuesday, November 07, 2017 12:41 - CONCLUSION: 1. Status post left tibial ORIF, as above. Preston Cuellar MD Elbow X-Ray 11/07/17 0000 Signed Impressions: Service Date/Time: Tuesday, November 07, 2017 11:59 - CONCLUSION: 1. External fixator placement, as above. Preston Cuellar MD Head CT 11/06/17 0000 Signed Impressions: Service Date/Time: October 09:48 - CONCLUSION: Increase of the size of the hemorrhage and surrounding edema in the left thalamus. Increasing intraventricular blood. Bilateral subarachnoid hemorrhage in the posterior sylvian region. Stable right frontal and left parietal contusions. Paco Llamas MD Upper Extremity CT 11/05/17 0000 Signed Impressions: Service Date/Time: October 10:01 - CONCLUSION: Severely comminuted elbow fracture with mild displacement of innumerable small fracture fragments involving the olecranon end humeral epicondyles. Eduard Bradshaw MD Pelvis X-Ray 11/05/17 0000 Signed Impressions: Service Date/Time: Sunday, November 05, 2017 09:49 - CONCLUSION: Satisfactory operative configuration Eduard Bradshaw MD Lower Extremity CT 11/05/17 0000 Signed Impressions: Service Date/Time: October 09:51 - CONCLUSION: 1. Previous plating of the patient's distal femur fracture. The fracture is well aligned. 2. Comminuted fracture of the lateral tibial plateau with no significant depression of the fracture fragment. 3. Comminuted fractures involving the proximal tibial diaphysis. 4. Comminuted fracture involving the proximal fibula Lai Tolliver MD Hand X-Ray 11/05/17 0000 Signed Impressions: Service Date/Time: Sunday, November 05, 2017 17:13 - CONCLUSION: 1. Severely comminuted fracture involving the second metacarpal. 2. Mildly displaced fracture involving the base of the proximal phalanx of the second digit. 3. Mildly displaced fracture involving the fourth metacarpal head Lai Tolliver MD Femur X-Ray 11/05/17 Signed Impressions: Service Date/Time: Sunday, November 05, 2017 10:32 - CONCLUSION: Intraoperative images. Paco Llamas MD Thoracic Spine CT [id number] Signed Impressions: Service Date/Time: Saturday, November 04, 2017 21:45 - CONCLUSION: 1. Nondisplaced right T1-T5 spinous process fractures. 2. Bony central canal is patent without vertebral body fracture or subluxation. Preston Cuellar MD Maxillofacial CT [id number] Signed Impressions: Service Date/Time: Saturday, November 04, 2017 21:40 - CONCLUSION: 1. Mildly depressed left orbital floor fracture with fractures of the lamina papyracea. 2. Multiple fractures involving the left maxilla. 3. Multiple nasal bone fractures. Rajeev Fairchild MD Lumbar Spine CT [id number] Signed Impressions: Service Date/Time: Saturday, November 04, 2017 21:45 - CONCLUSION: 1. Left-sided transverse process fractures at L1-5. 2. Right transverse process fractures at L4 and L5. 3. Intact vertebral bodies without subluxation. Intact bony central canal. Presotn Cuellar MD Cervical Spine CT [id number] Signed Impressions: Service Date/Time: Saturday, November 04, 2017 21:41 - CONCLUSION: 1. Right transverse process fracture of C4-T2. Fractures extend through the transverse foramen at C7 and C4. Preston Cuellar MD Chest CT 11/04/17 0000 Signed Impressions: Service Date/Time: Saturday, November 04, 2017 21:47 - CONCLUSION: 1. Suspected chronic pleural and parenchymal opacities in the left lung secondary to prior traumatic injury including old displaced left sixth rib fractures. 2. New acute nondisplaced fractures of the first ribs bilaterally with likely some contusions in the left lung and potentially posterior right lung. 3. Transverse process fractures of T1-4 vertebral bodies and left scapula. Preston Cuellar MD Abdomen/Pelvis CT 11/04/17 0000 Signed Impressions: Service Date/Time: Saturday, November 04, 2017 21:47 - CONCLUSION: 1. Multiple pelvic fractures and lumbar transverse process fractures, as above. 2. No gross acute traumatic intra-abdominal injury. Preston Cuellar MD . Procedures 11/04: Intubation by EMS 11/05: Right radial arterial catheter placement 11/05: Right internal jugular central line placement 11/05: Irrigation and debridement of left hand open second metacarpal fracture, complex wound closure left hand 15 cm, external fixation of pelvis, closed reduction pelvic ring fractures, irrigation and debridement of open left distal femur fracture, open reduction internal fixation of left distal femur fracture. 11/07: Open reduction total fixation bicondylar left tibial plateau fracture, closed reduction of the left distal humerus and olecranon fractures, external fixation of left upper extremity. 11/10: Closed reduction and external fixator application, second metacarpal left hand, wash, debridement and closure of laceration left hand. 11/10: Open reduction with internal fixation of the left zygomaticomaxillary complex fracture, reconstruction of the left orbital floor fracture with KLS mesh, closed reduction of the nasal bone fracture. . Assessment and Plan Disease Oriented Problem List: (1) Major neurocognitive disorder as late effect of traumatic brain injury without behavioral disturbance (2) CKD (chronic kidney disease) stage 4, GFR 15-29 ml/min (3) Hyperkalemia (4) Left hand fracture (5) Intracranial bleed (6) Femur fracture, left (7) Left elbow fracture (8) Pelvic fracture (9) Trauma (10) Rib fractures Symptom Scale: (1) Encephalopathy 0-10 Scale: Unable to quantify (Unresponsive) (2) Pain, generalized 0-10 Scale: Unable to quantify (Unresponsive) Pertinent Non-Medical Issues Psychosocial: He is single and reportedly has 3 children. Only one daughter has been located and states she is the only child. He has frequently been homeless and living with his cousin intermittently. Spiritual:Asked the daughter if he had any spiritual needs that should be addressed and she said "I am handling that". Legal: He has no known healthcare surrogate designation. Per [place] statutes, as he is unresponsive and unable to participate in decision-making, his daughter , Keara, would be the healthcare proxy. Ethical issues impacting care: None identified. . Important Contacts Daughter: Keara Rodriugez Pippa: Rosie Wells Family: Shruti Wells . Prognosis His prognosis is very poor. Per trauma surgeon evaluation, the patient has a severe brain injury considering Victor Coma Scale of 3 with likely hypoxic brain damage. Considering the fact that the patient is over 60 years of age outcomes with severe intracranial brain injury are poor and 90% of patients over the age of 60 will have a permanent deficit with 100% morbidity. There is very little likelihood that he will have any neurologic recovery. . Code Status: Full Code (By default) Plan PLAN: Legal decision maker: Patient is not capacitated due to severe brain injury, intubation, unresponsiveness. Per [place] statutes his daughter Keara Rodriguez would be his legal proxy. Goals: Aggressive. CODE STATUS: FULL CODE SYMPTOMS: * Encephalopathy: Patient has no response to verbal, tactile or noxious stimuli. He has suffered severe brain trauma with a very poor likelihood of any recovery according to the trauma surgeon, neurosurgeon and neuropsychology service. EEG shows moderate to severe abnormality because of nonreactive, low amplitude background rhythms suggesting a moderate to severe diffuse disturbance of cerebral function. No epileptiform features are present. Per trauma surgeons he has a 90% chance of mortality and a 100% chance of morbidity. He is receiving no IV sedation. Propofol has been off since 11/05. * Pain: He is at risk for uncontrolled pain due to his inability to make his needs known, bedbound status, multiple surgeries, multiple fractures and posttraumatic state. He is receiving Ripley 10/325 every 6 hours around-the- clock, schedule due to his multiple surgical procedures and broken bones. Palliative care will continue to follow the patient during hospital course as condition evolves, to assist patient/decision-maker with understanding of their medical conditions, weighing benefits/burdens of treatment options, for clarification of goals of treatment. Additionally will assist with any symptoms of palliative concern. . Time Spent Time Periods: 16: 25-17: 15 Total Floor Time (mins): 60 >50% Counseling/Coord of Care: Yes Attestation To help prompt me to consider important information that might be impacting today's encounter and assessment, information from prior notes written by myself or my colleagues may have been "brought forward" into today's note. My signature on this note, however, is an attestation that I personally performed the exam, history, and/or decision-making noted today, and, unless otherwise indicated, the interactions with patient, family, and staff as well as the review of records all occurred today. I also attest that the listed assessment and stated plan reflect my best clinical judgment today based on the combination of historical information, prior notes, and today's exam/ interactions. When time spent is documented, it refers only to time spent today by the signer, or if indicated, combined time spent today by collaborating physician/nurse practitioner. . Deepti Walton Nov 11, 2017 13:31
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
[2017-11-11] MEDS: CHLORHEXIDINE GLUCONATE 2 % 1 PACK (2 CLOTHS) TOP SCH (19:47)
[2017-11-12] VITALS (18 sets, daily range): BP systolic 129–159; BP diastolic 68–77; PULSE 75–96; RESP 16; TEMP 97.2–98.8; O2SAT 97–100
[2017-11-12] MEDS: METOPROLOL TARTRATE 5 MG/5 ML VIAL IV PUSH SCH ×4 (04:06→21:36)
[2017-11-12 04:30] LABS: AUTOMATED NEUTROPHIL # 5.6 TH/MM3 (1.8-7.7); BASOPHIL % 0.3 % (0.0-2.0); EOSINOPHIL % 0.2 % (0.0-4.0); HEMATOCRIT 22.5 % (39.0-51.0); HEMOGLOBIN 7.5 GM/DL (13.0-17.0); LYMPH % 12.9 % (9.0-44.0); MEAN CELL VOLUME 83.5 FL (80.0-100.0); MEAN CORPUSCULAR HEMOGLOBIN 27.9 PG (27.0-34.0); MEAN CORPUSCULAR HGB CONC 33.4 % (32.0-36.0); MEAN PLATELET VOLUME 8.3 FL (7.0-11.0); MONO % 16.1 % (0.0-8.0); MONOCYTE # 1.3 TH/MM3 (0-0.9); NEUT % 70.5 % (16.0-70.0); PLATELET COUNT 171 TH/MM3 (150-450); RED BLOOD COUNT 2.69 MIL/MM3 (4.50-5.90); RED CELL DISTRIBUTION WIDTH 17.7 % (11.6-17.2); WHITE BLOOD COUNT 7.9 TH/MM3 (4.0-11.0)
[2017-11-12 04:42] LABS: ALBUMIN 1.4 GM/DL (3.4-5.0); ALKALINE PHOSPHATASE 100 U/L (45-117); ALT (GPT) LESS THAN 6 U/L (12-78); AST (GOT) 16 U/L (15-37); BICARBONATE 28.6 MEQ/L (21.0-32.0); BLOOD UREA NITROGEN 70 MG/DL (7-18); CHLORIDE 111 MEQ/L (98-107); GLOMERULAR FILTRATION RATE 17 ML/MIN (>89); GLUCOSE,RANDOM 324 MG/DL (74-106); SODIUM (NA) 146 MEQ/L (136-145); TOTAL BILIRUBIN ADULT 0.4 MG/DL (0.2-1.0); TOTAL PROTEIN 5.9 GM/DL (6.4-8.2)
[2017-11-12] MEDS: INSULIN ASPART SUPPLEMENTAL SCALE SQ SCH ×3 (05:00→17:56)
[2017-11-12] MEDS: ACETAMINOPHEN/HYDROcodone 325 MG/10 MG TAB PO SCH ×3 (05:02→16:17)
[2017-11-12] MEDS: FAMOTIDINE 20 MG TAB PO SCH ×2 (08:03→21:37)
[2017-11-12] MEDS: DOCUSATE SODIUM 100 MG CAP PO SCH ×2 (08:03→21:36)
[2017-11-12] MEDS: CHOLECALCIFEROL (VIT D3) 1000 UNIT TAB PO SCH (08:03)
[2017-11-12] MEDS: DOCUSATE SODIUM 50 MG/SENNA 8.6 MG TAB PO SCH ×2 (08:03→21:36)
[2017-11-12] MEDS: CHLORHEXIDINE 0.12% (ORAL KIT) 15 ML CUP MT SCH ×2 (08:04→20:12)
[2017-11-12] MEDS: LACTULOSE SYRUP 20 GM/30 ML CUP PO SCH (08:04)
[2017-11-12] MEDS: CALCIUM/VITAMIN D 250 MG/125 U TAB PO SCH ×3 (08:04→17:56)
[2017-11-12] MEDS: levETIRAcetam INJ 500 MG in SODIUM CHLORIDE 0.9% INJ 100 ML IV SCH (08:04)
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
--- NOTE | 2017-11-12 09:18 | RADRPT ---
EXAM DATE/TIME: 11/12/2017 08:56 [facility] COMPARISON: CT BRAIN W/O CONTRAST, November 06, 2017, 9:48. INDICATIONS : Trauma follow up, Intracranial bleed RADIATION DOSE: 57.53 CTDIvol (mGy) MEDICAL HISTORY : Non-responsive. SURGICAL HISTORY : Non-responsive. ENCOUNTER: Subsequent ACUITY: 1 week PAIN SCALE: Non-responsive LOCATION: cranial TECHNIQUE: Multiple contiguous axial images were obtained of the head. Using automated exposure control and adj ustment of the mA and/or kV according to patient size, radiation dose was kept as low as reasonably a chievable to obtain optimal diagnostic quality images. DICOM format image data is available electro nically for review and comparison. FINDINGS: There has been interval removal of an ICP monitor. There is evolving contusion in the frontal regions and left thalamus an evolving hemorrhage in the ventricles, along the tentorium and along the brain surface in the frontal regions and left temporal region. There are no new acute findings identified. Nothing to suggest acute infarction. No brain mass or shift. Opacification of the visualized facial s inuses again noted. Orbitofacial fractures CONCLUSION: Interval removal of an ICP monitor. Evolving contusions and hemorrhage. No new acute findings Eduard Bradshaw MD on November 12, 2017 at 9:12 Board Certified Radiologist. This report was verified electronically.
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
[2017-11-12] MEDS ORDERED: INSULIN ASPART SUPPLEMENTAL SCALE SQ SCH (12:00)
[2017-11-12] MEDS: HEPARIN SODIUM - SQ 10,000 UNITS/ML VIAL SQ SCH ×2 (12:18→21:36)
[2017-11-12] MEDS ORDERED: EPOETIN ALFA 20,000 UNITS/ML VIAL SQ ONE (13:00)
--- NOTE | 2017-11-12 13:26 | HHI.HCPN ---
Reason for visit a. To assist with evaluation and management of symptoms including: Encephalopathy, pain b. To assist medical decision maker(s) with: better understanding of current medical conditions; weighing benefits/burdens of medical treatment options; making medical treatment decisions. Subjective/Interval History Patient remains unresponsive status post closed reduction and external fixation of left hand, second metacarpal and open reduction, internal fixation of the left zygomaticomaxillary complex fracture, reconstruction of the left orbital floor fracture with talus mesh and closed reduction of the nasal bone fracture on 11/10. Patient has been off sedation since 11/05 when propofol was stopped and remains encephalopathic. . He has since received some small doses of fentanyl for pain management, but is receiving no sedating medications at this time.. [facility] service is following with the trauma team. He was previously on [place] [id number] but that has been stopped. Clinical data: * Laboratory: ABG shows pH 7.42, PCO2 40, PO2 99, bicarb 26, base excess +1.6, 96% saturation on 30% FiO2. Not overbreathing the vent. WBC 7.9, hemoglobin 7.5, hematocrit 22.5, platelets 171, sodium 146, potassium 4.7, BUN 70, creatinine 4.30. * Radiology: Repeat head CT shows an evolving contusion in the frontal region and left thalamus and evolving hemorrhage in the ventricles, along the tentorium and along the brain surface in the frontal regions and left temporal region. There is no new acute findings identified nor anything to suggest acute infarction, brain mass or shift. Nephrology consultation shows stable creatinine, GFR of 17 mL/minute, adequate urine output with improving hypernatremia. No urgent need for dialysis. Neurosurgery note EEG done 11/10 without epileptiform features, moderate to severe diffuse disturbance of cerebral function. Patient off sedation. Neuropsychology notes that the patient has no reasonable chance for any type of neuro behavioral recovery in places the patient at [place] level 1 scale, which measures the levels of awareness, cognition, behavior and interaction with the environment. Level One indicates no response to those. Patient is seen today intubated, not sedated, not responding to deep nailbed pressure, sternal rub, verbal or tactile stimuli. Positive cough when suctioned. . Family/friend interactions No family at bedside. Held meeting with patient's daughter last night and she is taking a couple days to process the information prior to determining goals of care and will call me back. 13: 30: Spoke with daughter via telephone. She is considering withdrawal of life support and had logistic questions regarding organization with family and time of day. Advised her that she could choose the time of day that suited her and her family best and asked her to let me know when so I could have the paperwork ready for her to sign. She states she is still organizing with the family and will let me know. . Advance Directives Living Will: Never completed Health Care Surrogate: Never completed Durable Power of Surgical Lead: Never completed Advance Directive Specifics Health Care Surrogate(s): No healthcare surrogate identified. . Documented care wishes: No documented healthcare wishes. . Objective Vital Signs Date Time Temp Pulse Resp B/P (MAP) Pulse Ox O2 Delivery O2 Flow Rate FiO2 11/12/17 10:48 99 30 11/12/17 10:00 90 11/12/17 08:57 100 60 11/12/17 08:16 100 30 11/12/17 08:00 98.1 80 16 148/70 (96) 100 11/12/17 08:00 80 11/12/17 08:00 40 11/12/17 06:00 80 11/12/17 04:10 100 30 11/12/17 04:00 78 11/12/17 04:00 97.2 78 16 151/76 (101) 100 11/12/17 04:00 40 11/12/17 02:00 75 11/12/17 00:00 97.5 80 16 129/68 (88) 100 11/12/17 00:00 40 11/12/17 00:00 80 11/11/17 22:16 100 30 11/11/17 22:00 84 11/11/17 20:00 97.9 74 16 122/73 (89) 100 11/11/17 20:00 74 11/11/17 20:00 40 11/11/17 19:36 100 30 11/11/17 18:00 76 11/11/17 16:25 100 30 11/11/17 16:00 97.9 76 16 119/70 (86) 100 11/11/17 16:00 74 11/11/17 16:00 40 11/11/17 14:00 74 Intake & Output 11/12/17 11/12/17 07:00 19:00 Intake Total 537 ml 105 ml Output Total 550 ml Balance -13 ml 105 ml Intake IV Total 105 ml Tube Feeding 537 ml Output Urine Total 550 ml # Bowel Movements 0 Physical Exam CONSTITUTIONAL/GENERAL: This is an adequately nourished patient, intubated, unsedated, unresponsive. TUBES/LINES/DRAINS: Right IJ triple-lumen, right radial arterial line, right ACF PIV, Guy catheter, ETT, OGT. SKIN: No jaundice, rashes, or lesions. External fixators to pelvis and left arm. Left arm and left leg in splint. HEAD: Atraumatic. Normocephalic. EYES: Pupils 2 mm equal and round. Positive scleral edema. ENT: intubated, OG tube. NECK: In [place] collar. CARDIOVASCULAR: Regular rate and rhythm without murmurs, gallops, or rubs. No JVD. Peripheral pulses symmetric. RESPIRATORY/CHEST: Lungs clear bilaterally. Mechanically ventilated. GASTROINTESTINAL: Abdomen soft, nondistended. No hepato-splenomegaly, or palpable masses. Bowel sounds present. GENITOURINARY: Without palpable bladder distension. Guy catheter in place. MUSCULOSKELETAL: Left arm in surgical wrap, splint with external fixator. Pelvic fixator, left lower extremity in splint, surgical dressings. NEUROLOGICAL: Unresponsive. PSYCHIATRIC: Unresponsive . Diagnostic Tests Laboratory Laboratory Tests Test 11/10/17 03:55 11/10/17 05:26 11/11/17 04:45 11/11/17 05:50 White Blood Count 5.9 TH/MM3 (4.0-11.0) 5.9 TH/MM3 (4.0-11.0) Red Blood Count 2.83 MIL/MM3 (4.50-5.90) 2.74 MIL/MM3 (4.50-5.90) Hemoglobin 7.8 GM/DL (13.0-17.0) 7.6 GM/DL (13.0-17.0) Hematocrit 23.7 % (39.0-51.0) 23.0 % (39.0-51.0) Mean Corpuscular Volume 83.6 FL (80.0-100.0) 83.7 FL (80.0-100.0) Mean Corpuscular Hemoglobin 27.6 PG (27.0-34.0) 27.8 PG (27.0-34.0) Mean Corpuscular Hemoglobin Concent 33.0 % (32.0-36.0) 33.2 % (32.0-36.0) Red Cell Distribution Width 17.0 % (11.6-17.2) 17.8 % (11.6-17.2) Platelet Count 140 TH/MM3 (150-450) 139 TH/MM3 (150-450) Mean Platelet Volume 7.4 FL (7.0-11.0) 8.1 FL (7.0-11.0) Neutrophils (%) (Auto) 59.3 % (16.0-70.0) 80.9 % (16.0-70.0) Lymphocytes (%) (Auto) 16.1 % (9.0-44.0) 9.9 % (9.0-44.0) Monocytes (%) (Auto) 19.3 % (0.0-8.0) 9.1 % (0.0-8.0) Eosinophils (%) (Auto) 4.6 % (0.0-4.0) 0.0 % (0.0-4.0) Basophils (%) (Auto) 0.7 % (0.0-2.0) 0.1 % (0.0-2.0) Neutrophils # (Auto) 3.5 TH/MM3 (1.8-7.7) 4.8 TH/MM3 (1.8-7.7) Lymphocytes # (Auto) 1.0 TH/MM3 (1.0-4.8) 0.6 TH/MM3 (1.0-4.8) Monocytes # (Auto) 1.1 TH/MM3 (0-0.9) 0.5 TH/MM3 (0-0.9) Eosinophils # (Auto) 0.3 TH/MM3 (0-0.4) 0.0 TH/MM3 (0-0.4) Basophils # (Auto) 0.0 TH/MM3 (0-0.2) 0.0 TH/MM3 (0-0.2) CBC Comment DIFF FINAL DIFF FINAL Differential Comment Blood Urea Nitrogen 47 MG/DL (7-18) 58 MG/DL (7-18) Creatinine 4.16 MG/DL (0.60-1.30) 4.11 MG/DL (0.60-1.30) Random Glucose 230 MG/DL (74-106) 289 MG/DL (74-106) Total Protein 5.6 GM/DL (6.4-8.2) Albumin 1.4 GM/DL (3.4-5.0) Calcium Level 7.3 MG/DL (8.5-10.1) 8.0 MG/DL (8.5-10.1) Phosphorus Level 3.6 MG/DL (2.5-4.9) Magnesium Level 1.8 MG/DL (1.5-2.5) Alkaline Phosphatase 105 U/L (45-117) Aspartate Amino Transf (AST/SGOT) 20 U/L (15-37) Alanine Aminotransferase (ALT/SGPT) LESS THAN 6 U/L (12-78) Total Bilirubin 0.4 MG/DL (0.2-1.0) Sodium Level 153 MEQ/L (136-145) 146 MEQ/L (136-145) Potassium Level 3.8 MEQ/L (3.5-5.1) 4.7 MEQ/L (3.5-5.1) Chloride Level 118 MEQ/L (98-107) 112 MEQ/L (98-107) Carbon Dioxide Level 31.0 MEQ/L (21.0-32.0) 28.4 MEQ/L (21.0-32.0) Anion Gap 4 MEQ/L (5-15) 6 MEQ/L (5-15) Estimat Glomerular Filtration Rate 18 ML/MIN (>89) 18 ML/MIN (>89) Protein Corrected Calcium 8.1 MG/DL (8.5-10.1) Blood Gas Puncture Site ART LINE ART LINE Blood Gas Patient Temperature 98.6 98.6 Blood Gas HCO3 26 mmol/L (22-26) 23 mmol/L (22-26) Blood Gas Base Excess 1.5 mmol/L (-2-2) -0.7 mmol/L (-2-2) Blood Gas Oxygen Saturation 96 % (90-100) 97 % (90-100) Arterial Blood pH 7.40 (7.380-7.420) 7.42 (7.380-7.420) Arterial Blood Partial Pressure CO2 43 mmHg (38-42) 37 mmHg (38-42) Arterial Blood Partial Pressure O2 113 mmHg (61-120) 142 mmHg (61-120) Arterial Blood Oxygen Content 11.4 Vol % (12.0-20.0) 14.1 Vol % (12.0-20.0) Arterial Blood Carboxyhemoglobin 1.7 % (0-4) 1.6 % (0-4) Arterial Blood Methemoglobin 0.8 % (0-2) 0.8 % (0-2) Blood Gas Hemoglobin 8.2 G/DL (12.0-16.0) 10.2 G/DL (12.0-16.0) Oxygen Delivery Device VENT VENTILATOR Blood Gas Ventilator Setting SEE COMMENTS /IT 1.0 5 PEEP Blood Gas Inspired Oxygen 40 % 40 % Test 11/12/17 03:50 11/12/17 04:24 White Blood Count 7.9 TH/MM3 (4.0-11.0) Red Blood Count 2.69 MIL/MM3 (4.50-5.90) Hemoglobin 7.5 GM/DL (13.0-17.0) Hematocrit 22.5 % (39.0-51.0) Mean Corpuscular Volume 83.5 FL (80.0-100.0) Mean Corpuscular Hemoglobin 27.9 PG (27.0-34.0) Mean Corpuscular Hemoglobin Concent 33.4 % (32.0-36.0) Red Cell Distribution Width 17.7 % (11.6-17.2) Platelet Count 171 TH/MM3 (150-450) Mean Platelet Volume 8.3 FL (7.0-11.0) Neutrophils (%) (Auto) 70.5 % (16.0-70.0) Lymphocytes (%) (Auto) 12.9 % (9.0-44.0) Monocytes (%) (Auto) 16.1 % (0.0-8.0) Eosinophils (%) (Auto) 0.2 % (0.0-4.0) Basophils (%) (Auto) 0.3 % (0.0-2.0) Neutrophils # (Auto) 5.6 TH/MM3 (1.8-7.7) Lymphocytes # (Auto) 1.0 TH/MM3 (1.0-4.8) Monocytes # (Auto) 1.3 TH/MM3 (0-0.9) Eosinophils # (Auto) 0.0 TH/MM3 (0-0.4) Basophils # (Auto) 0.0 TH/MM3 (0-0.2) CBC Comment DIFF FINAL Differential Comment Blood Urea Nitrogen 70 MG/DL (7-18) Creatinine 4.30 MG/DL (0.60-1.30) Random Glucose 324 MG/DL (74-106) Total Protein 5.9 GM/DL (6.4-8.2) Albumin 1.4 GM/DL (3.4-5.0) Calcium Level 8.0 MG/DL (8.5-10.1) Alkaline Phosphatase 100 U/L (45-117) Aspartate Amino Transf (AST/SGOT) 16 U/L (15-37) Alanine Aminotransferase (ALT/SGPT) LESS THAN 6 U/L (12-78) Total Bilirubin 0.4 MG/DL (0.2-1.0) Sodium Level 146 MEQ/L (136-145) Potassium Level 4.7 MEQ/L (3.5-5.1) Chloride Level 111 MEQ/L (98-107) Carbon Dioxide Level 28.6 MEQ/L (21.0-32.0) Anion Gap 6 MEQ/L (5-15) Estimat Glomerular Filtration Rate 17 ML/MIN (>89) Blood Gas Puncture Site RT RADIAL Blood Gas Patient Temperature 98.6 Blood Gas HCO3 26 mmol/L (22-26) Blood Gas Base Excess 1.6 mmol/L (-2-2) Blood Gas Oxygen Saturation 96 % (90-100) Arterial Blood pH 7.42 (7.380-7.420) Arterial Blood Partial Pressure CO2 40 mmHg (38-42) Arterial Blood Partial Pressure O2 99 mmHg (61-120) Arterial Blood Oxygen Content 10.3 Vol % (12.0-20.0) Arterial Blood Carboxyhemoglobin 1.7 % (0-4) Arterial Blood Methemoglobin 0.5 % (0-2) Blood Gas Hemoglobin 7.5 G/DL (12.0-16.0) Oxygen Delivery Device VENTILATOR Blood Gas Ventilator Setting 16/600/IT1.0/5PEEP Blood Gas Inspired Oxygen 30 % . Result Diagram: 11/12/17 0350 11/12/17 0350 Imaging Last Impressions Head CT 11/12/17 0800 Signed Impressions: Service Date/Time: Sunday, November 12, 2017 08:56 - CONCLUSION: Interval removal of an ICP monitor. Evolving contusions and hemorrhage. No new acute findings Edaurd Bradshaw MD Chest X-Ray 11/08/17 0000 Signed Impressions: Service Date/Time: Wednesday, November 08, 2017 06:39 - CONCLUSION: 1. Mild consolidation and small effusion developing right base. 2. Mild consolidation and small effusion of the left base not significantly changed. 3. Endotracheal tube tip is close to the jodi. Eduard Rubin MD Tibia/Fibula X-Ray 11/07/17 0000 Signed Impressions: Service Date/Time: Tuesday, November 07, 2017 12:41 - CONCLUSION: 1. Status post left tibial ORIF, as above. Preston Cuellar MD Elbow X-Ray 11/07/17 0000 Signed Impressions: Service Date/Time: Tuesday, November 07, 2017 11:59 - CONCLUSION: 1. External fixator placement, as above. Preston Cuellar MD Upper Extremity CT 11/05/17 0000 Signed Impressions: Service Date/Time: October 10:01 - CONCLUSION: Severely comminuted elbow fracture with mild displacement of innumerable small fracture fragments involving the olecranon end humeral epicondyles. Eduard Bradshaw MD Pelvis X-Ray 11/05/17 0000 Signed Impressions: Service Date/Time: Sunday, November 05, 2017 09:49 - CONCLUSION: Satisfactory operative configuration Eduard Bradshaw MD Lower Extremity CT 11/05/17 0000 Signed Impressions: Service Date/Time: October 09:51 - CONCLUSION: 1. Previous plating of the patient's distal femur fracture. The fracture is well aligned. 2. Comminuted fracture of the lateral tibial plateau with no significant depression of the fracture fragment. 3. Comminuted fractures involving the proximal tibial diaphysis. 4. Comminuted fracture involving the proximal fibula Lai Tolliver MD Hand X-Ray 11/05/17 0000 Signed Impressions: Service Date/Time: Sunday, November 05, 2017 17:13 - CONCLUSION: 1. Severely comminuted fracture involving the second metacarpal. 2. Mildly displaced fracture involving the base of the proximal phalanx of the second digit. 3. Mildly displaced fracture involving the fourth metacarpal head Lai Tolliver MD Femur X-Ray 11/05/17 Signed Impressions: Service Date/Time: Sunday, November 05, 2017 10:32 - CONCLUSION: Intraoperative images. Paco Llamas MD Thoracic Spine CT 11/04/[id number] Signed Impressions: Service Date/Time: Saturday, November 04, 2017 21:45 - CONCLUSION: 1. Nondisplaced right T1-T5 spinous process fractures. 2. Bony central canal is patent without vertebral body fracture or subluxation. Preston Cuellar MD Maxillofacial CT [id number]/04/[id number] Signed Impressions: Service Date/Time: Saturday, November 04, 2017 21:40 - CONCLUSION: 1. Mildly depressed left orbital floor fracture with fractures of the lamina papyracea. 2. Multiple fractures involving the left maxilla. 3. Multiple nasal bone fractures. Rajeev Fairchild MD Lumbar Spine CT 11/04/[id number] Signed Impressions: Service Date/Time: Saturday, November 04, 2017 21:45 - CONCLUSION: 1. Left-sided transverse process fractures at L1-5. 2. Right transverse process fractures at L4 and L5. 3. Intact vertebral bodies without subluxation. Intact bony central canal. Preston Cuellar MD Cervical Spine CT 11/04/[id number] Signed Impressions: Service Date/Time: Saturday, November 04, 2017 21:41 - CONCLUSION: 1. Right transverse process fracture of C4-T2. Fractures extend through the transverse foramen at C7 and C4. Preston Cuellar MD Chest CT 11/04/17 0000 Signed Impressions: Service Date/Time: Saturday, November 04, 2017 21:47 - CONCLUSION: 1. Suspected chronic pleural and parenchymal opacities in the left lung secondary to prior traumatic injury including old displaced left sixth rib fractures. 2. New acute nondisplaced fractures of the first ribs bilaterally with likely some contusions in the left lung and potentially posterior right lung. 3. Transverse process fractures of T1-4 vertebral bodies and left scapula. Preston Cuellar MD Abdomen/Pelvis CT 11/04/17 0000 Signed Impressions: Service Date/Time: Saturday, November 04, 2017 21:47 - CONCLUSION: 1. Multiple pelvic fractures and lumbar transverse process fractures, as above. 2. No gross acute traumatic intra-abdominal injury. Preston Cuellar MD . Procedures 11/04: Intubation by EMS 11/05: Right radial arterial catheter placement 11/05: Right internal jugular central line placement 11/05: Irrigation and debridement of left hand open second metacarpal fracture, complex wound closure left hand 15 cm, external fixation of pelvis, closed reduction pelvic ring fractures, irrigation and debridement of open left distal femur fracture, open reduction internal fixation of left distal femur fracture. 11/07: Open reduction total fixation bicondylar left tibial plateau fracture, closed reduction of the left distal humerus and olecranon fractures, external fixation of left upper extremity. 11/10: Closed reduction and external fixator application, second metacarpal left hand, wash, debridement and closure of laceration left hand. 11/10: Open reduction with internal fixation of the left zygomaticomaxillary complex fracture, reconstruction of the left orbital floor fracture with KLS mesh, closed reduction of the nasal bone fracture. . Assessment and Plan Disease Oriented Problem List: (1) Major neurocognitive disorder as late effect of traumatic brain injury without behavioral disturbance (2) CKD (chronic kidney disease) stage 4, GFR 15-29 ml/min (3) Hyperkalemia (4) Left hand fracture (5) Intracranial bleed (6) Femur fracture, left (7) Left elbow fracture (8) Pelvic fracture (9) Trauma (10) Rib fractures Symptom Scale: (1) Encephalopathy 0-10 Scale: Unable to quantify (Unresponsive) (2) Pain, generalized 0-10 Scale: Unable to quantify (Unresponsive) Pertinent Non-Medical Issues Psychosocial: He is single and reportedly has 3 children. Only one daughter has been located and states she is the only child. He has frequently been homeless and living with his cousin intermittently. Spiritual:Asked the daughter if he had any spiritual needs that should be addressed and she said "I am handling that". Legal: He has no known healthcare surrogate designation. Per [place] statutes, as he is unresponsive and unable to participate in decision-making, his daughter , Keara, would be the healthcare proxy. Ethical issues impacting care: None identified. . Important Contacts Daughter: Keara Rodriguez Niece: Rosie Wells Family: Shruti Wells . Prognosis His prognosis is very poor. Per trauma surgeon evaluation, the patient has a severe brain injury considering [place] Coma Scale of 3 with likely hypoxic brain damage. Considering the fact that the patient is over 60 years of age outcomes with severe intracranial brain injury are poor and 90% of patients over the age of 60 will have a permanent deficit with 100% morbidity. There is very little likelihood that he will have any neurologic recovery. . Code Status: Full Code (By default) Plan PLAN: Legal decision maker: Patient is not capacitated due to severe brain injury, intubation, unresponsiveness. Per [place] statutes his daughter Keara Rodriguez would be his legal proxy. Goals: Aggressive. CODE STATUS: FULL CODE SYMPTOMS: * Encephalopathy: Patient has no response to verbal, tactile or noxious stimuli. He has suffered severe brain trauma with a very poor likelihood of any recovery according to the trauma surgeon, neurosurgeon and neuropsychology service. EEG shows moderate to severe abnormality because of nonreactive, low amplitude background rhythms suggesting a moderate to severe diffuse disturbance of cerebral function. No epileptiform features are present. Per trauma surgeons he has a 90% chance of mortality and a 100% chance of morbidity. He is receiving no IV sedation. Propofol has been off since 11/05. CT of the brain 11/12 shows evolving hemorrhage and evolving contusion with no acute events. * Pain: He is at risk for uncontrolled pain due to his inability to make his needs known, bedbound status, multiple surgeries, multiple fractures and posttraumatic state. He is currently on no narcotic pain medications. Palliative care will continue to follow the patient during hospital course as condition evolves, to assist patient/decision-maker with understanding of their medical conditions, weighing benefits/burdens of treatment options, for clarification of goals of treatment. Additionally will assist with any symptoms of palliative concern. . Attestation To help prompt me to consider important information that might be impacting today's encounter and assessment, information from prior notes written by myself or my colleagues may have been "brought forward" into today's note. My signature on this note, however, is an attestation that I personally performed the exam, history, and/or decision-making noted today, and, unless otherwise indicated, the interactions with patient, family, and staff as well as the review of records all occurred today. I also attest that the listed assessment and stated plan reflect my best clinical judgment today based on the combination of historical information, prior notes, and today's exam/ interactions. When time spent is documented, it refers only to time spent today by the signer, or if indicated, combined time spent today by collaborating physician/nurse practitioner. . Deepti Walton Nov 12, 2017 13:26
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
--- NOTE | 2017-11-12 17:27 | MB ---
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 CONCLUSION: 1. Right pubic rami and bilateral sacral fractures. Preston Cuellar MD Maxillofacial CT [id number] Signed Impressions: Service Date/Time: Saturday, November 04, 2017 21:40 - CONCLUSION: 1. Mildly depressed left orbital floor fracture with fractures of the lamina papyracea. 2. Multiple fractures involving the left maxilla. 3. Multiple nasal bone fractures. Rajeev Fairchild MD Head CT [id number] Signed Impressions: Service Date/Time: Saturday, November 04, 2017 21:40 - CONCLUSION: 1. Abnormal. Left thalamic intra-axial hemorrhage with bilateral subarachnoid and intraventricular hemorrhage. 2. Findings consistent with contusion of the left frontoparietal high convexities. 3. Left facial bone fractures. Please see CT facial bone report for details. Preston Cuellar MD Chest X-Ray [id number] Signed Impressions: Service Date/Time: Saturday, November 04, 2017 21:23 - CONCLUSION: 1. ETT in good position. Preston Cuellar MD Cervical Spine CT [id number] Signed Impressions: Service Date/Time: Saturday, November 04, 2017 21:41 - CONCLUSION: 1. Right transverse process fracture of C4-T2. Fractures extend through the transverse foramen at C7 and C4. Preston Cuellar MD Hand X-Ray 11/04/17 0000 Signed Impressions: Service Date/Time: Saturday, November 04, 2017 21:23 - CONCLUSION: 1. Limited examination. 2. Comminuted fracture of the distal fourth metacarpal with questionable nondisplaced fracture of the proximal fourth phalanx. Preston Cuellar MD Femur X-Ray 11/04/17 0000 Signed Impressions: Service Date/Time: Saturday, November 04, 2017 21:23 - CONCLUSION: 1. Comminuted impacted distal femoral fracture. rPeston Cuellar MD Elbow X-Ray 11/04/17 0000 Signed Impressions: Service Date/Time: Saturday, November 04, 2017 21:23 - CONCLUSION: 1. Limited examination demonstrating comminuted fracture of the distal humerus and proximal ulna. Preston Cuellar MD Chest X-Ray 11/04/17 0000 Signed Impressions: Service Date/Time: Saturday, November 04, 2017 21:23 - CONCLUSION: 1. Displaced lower left rib fractures without significant pneumothorax. 2. Patchy airspace disease in the left lower lung zone consistent with contusions. Preston Cuellar MD Chest CT 11/04/17 0000 Signed Impressions: Service Date/Time: Saturday, November 04, 2017 21:47 - CONCLUSION: 1. Suspected chronic pleural and parenchymal opacities in the left lung secondary to prior traumatic injury including old displaced left sixth rib fractures. 2. New acute nondisplaced fractures of the first ribs bilaterally with likely some contusions in the left lung and potentially posterior right lung. 3. Transverse process fractures of T1-4 vertebral bodies and left scapula. Preston Cuellar MD Abdomen/Pelvis CT 11/04/17 0000 Signed Impressions: Service Date/Time: Saturday, November 04, 2017 21:47 - CONCLUSION: 1. Multiple pelvic fractures and lumbar transverse process fractures, as above. 2. No gross acute traumatic intra-abdominal injury. MD Ivet Farmer VTE Risk Assessment [place] VTE Risk Assessment: Mod/High Risk (score >= 2) VTE Pharm Contraindication: Active bleeding Caprini Risk Assessment Model Point Value = 1 Point Value = 2 Point Value = 3 Point Value = 5 Age 41-60 Minor surgery BMI > 25 kg/m2 Swollen legs Varicose veins or History of unexplained or recurrent spontaneous Oral contraceptives or hormone replacement Sepsis (< 1 month) Serious lung disease, including pneumonia (< 1 month) Abnormal pulmonary function Acute myocardial infarction Congestive heart failure (< 1 month) History of inflammatory bowel disease Medical patient at bed rest Age 61-74 Arthroscopic surgery Major open surgery (> 45 min) Laparoscopic surgery (> 45 min) Malignancy Confined to bed (> 72 hours) Immobilizing plaster cast Central venous access Age >= 75 History of VTE Family history of VTE Factor V Leiden Prothrombin [id number] Lupus anticoagulant Anticardiolipin antibodies Elevated serum homocysteine Heparin-induced thrombocytopenia Other congenital or acquired thrombophilia Stroke (< 1 month) Elective arthroplasty Hip, pelvis, or leg fracture Acute spinal cord injury (< 1 month) Prophylaxis Regimen Total Risk Factor Score Risk Level Prophylaxis Regimen 0-1 Low Early ambulation 2 Moderate Order ONE of the following: *Sequential Compression Device (SCD) *Heparin 5000 units SQ BID 3-4 Higher Order ONE of the following medications: *Heparin 5000 units SQ TID *Enoxaparin/Lovenox 40 mg SQ daily (WT < 150 kg, CrCl > 30 mL/min) *Enoxaparin/Lovenox 30 mg SQ daily (WT < 150 kg, CrCl > 10-29 mL/min) *Enoxaparin/Lovenox 30 mg SQ BID (WT < 150 kg, CrCl > 30 mL/min) AND/OR *Sequential Compression Device (SCD) 5 or more Highest Order ONE of the following medications: *Heparin 5000 units SQ TID (Preferred with Epidurals) *Enoxaparin/Lovenox 40 mg SQ daily (WT < 150 kg, CrCl > 30 mL/min) *Enoxaparin/Lovenox 30 mg SQ daily (WT < 150 kg, CrCl > 10-29 mL/min) *Enoxaparin/Lovenox 30 mg SQ BID (WT < 150 kg, CrCl > 30 mL/min) AND *Sequential Compression Device (SCD) Upon review of his radiologic studies, the patient has been transferred to the intensive care unit. His condition is truly critical and his chances of survival are unknown at this time. Placement of an intracranial pressure monitor is indicated as recommended by the [employer]. The patient will be controlled with serial neuro checks in a serial fashion. Control mechanical ventilation with attention to keep the end-tidal CO2 at 33-35 mmHg. Hypertonic solution will be initiated with an initial dose of mannitol, followed by 3% normal saline. Placement of a central venous catheter is necessary for this. Hemodynamically monitoring with placement of an invasive arterial catheter is indicated. In regards to the cervical fractures, the patient will be kept in a hard cervical collar. Once his condition improves, an MRI of cervical spine will be obtained to assess the stability of the ligamentous structures. Multiple thoracic fractures will be attempt to manage them nonsurgically. I have evaluated the CT of the lumbar spine which shows multiple fractures. It is not known whether there is a ligamentous injury associated with them. Further followup is necessary. Keppra will be given for prophylaxis of seizures. Fentanyl and propofol will be used for sedation. The patient has mildly depressed left orbital floor fracture and a consultation to a oral maxillofacial surgeon has been placed. In addition to the lumbar spine fractures, the patient has a comminuted right sacral fracture. This will be further evaluated. The patient has bilateral pubic rami fractures, and posterior bilateral iliac crest bone fractures. Placement of an external fixator is indicated. In regards to the fracture of the distal femur, a consultation to an orthopedist has been placed. The patient has comminuted fractures of the distal humerus and proximal ulna to which I will defer care to the orthopedic surgeon. The patient has a comminuted fracture of the distal second metacarpal joint and a consultation to a hand surgeon has been placed. In regards to the multiple posterior rib fractures, these will be managed with narcotic analgesics. The patient will be closely watched for developing of pneumothorax. Should a pneumothorax occur, a chest tube will be placed. The patient has stage IV renal failure. Close monitoring of the urine output, BUN and creatinine is recommended. The patient has hyperkalemia. Careful administration of IV fluids with Kayexalate 15 gm and followup electrolytes. Prophylactic antibiotics will be given for his multiple lacerations. The patient has anemia, which will be monitored. No indication for transfusion at this time. Protonix will be given for prophylaxis of a stress ulcer related to the head injury. Deep venous thrombosis prophylaxis shall be instituted. I will provide further recommendations depending on the patient's clinical evaluation and followup studies. MD DARRYL Zavala/TI , 04:42 PM , 05:24 PM MTDD
[2017-11-13] VITALS (17 sets, daily range): BP systolic 123–176; BP diastolic 67–84; PULSE 82–106; RESP 16–24; TEMP 98.4–99.5; O2SAT 95–100
[2017-11-13] MEDS: INSULIN ASPART SUPPLEMENTAL SCALE SQ SCH ×4 (00:52→17:34)
[2017-11-13] MEDS: HYOSCYAMINE 0.125 MG TAB PO PRN ×2 (00:55→11:51)
[2017-11-13] MEDS: hydrALAZINE HCL 20 MG/ML VIAL IV PRN ×3 (01:10→18:57)
[2017-11-13] MEDS: CHLORHEXIDINE GLUCONATE 2 % 1 PACK (2 CLOTHS) TOP SCH (03:55)
[2017-11-13] MEDS: METOPROLOL TARTRATE 5 MG/5 ML VIAL IV PUSH SCH ×2 (04:06→09:02)
[2017-11-13 04:45] LABS: BICARBONATE 28.3 MEQ/L (21.0-32.0); CALCIUM 8.3 MG/DL (8.5-10.1); CREATININE 3.98 MG/DL (0.60-1.30)
[2017-11-13] MEDS: ACETAMINOPHEN/HYDROcodone 325 MG/10 MG TAB PO SCH ×4 (04:56→17:29)
[2017-11-13] MEDS: HEPARIN SODIUM - SQ 10,000 UNITS/ML VIAL SQ SCH ×3 (05:22→20:47)
--- NOTE | 2017-11-13 06:24 | RADRPT ---
EXAM DATE/TIME: 11/13/2017 05:45 [facility] COMPARISON: CHEST SINGLE AP, November 08, 2017, 6:39. INDICATIONS : Shortness of breath. MEDICAL HISTORY : None. SURGICAL HISTORY : None. ENCOUNTER: Subsequent ACUITY: 1 week PAIN SCORE: Non-responsive. LOCATION: Bilateral chest FINDINGS: Stable ETT, NGT and right IJ central line. Persistent patchy bilateral lower lobe airspace disease an d small left pleural effusion. Likely trace right pleural effusion. Cardiomediastinal contours are st able. Remainder of the exam is unchanged. CONCLUSION: 1. Stable tubes and lines. 2. Stable mild bilateral lower lung zone airspace disease with trace right and small left pleural eff usions. 3. No significant interval change. Preston Cuellar MD on November 13, 2017 at 6:23 Board Certified Radiologist. This report was verified electronically.
[2017-11-13 07:44] LABS: AUTOMATED NEUTROPHIL # 6.1 TH/MM3 (1.8-7.7); BASOPHIL # 0.1 TH/MM3 (0-0.2); BASOPHIL % 0.7 % (0.0-2.0); EOSINOPHIL # 0.3 TH/MM3 (0-0.4); EOSINOPHIL % 2.8 % (0.0-4.0); LYMPH % 13.9 % (9.0-44.0); LYMPHOCYTE # 1.3 TH/MM3 (1.0-4.8); MEAN CELL VOLUME 83.5 FL (80.0-100.0); MEAN CORPUSCULAR HEMOGLOBIN 27.8 PG (27.0-34.0); MEAN CORPUSCULAR HGB CONC 33.3 % (32.0-36.0); MEAN PLATELET VOLUME 8.3 FL (7.0-11.0); MONO % 15.3 % (0.0-8.0); MONOCYTE # 1.4 TH/MM3 (0-0.9); NEUT % 67.3 % (16.0-70.0); PLATELET COUNT 224 TH/MM3 (150-450); RED BLOOD COUNT 2.87 MIL/MM3 (4.50-5.90); RED CELL DISTRIBUTION WIDTH 17.4 % (11.6-17.2); WHITE BLOOD COUNT 9.1 TH/MM3 (4.0-11.0)
[2017-11-13 07:52] LABS: BANDS 1 % (0-6); CORRECTED NUCLEATED RBC 1 /100 WBC (0-0); LYMPHOCYTES 13 % (9-44); METAMYELOCYTES 3 % (0-1); MONOCYTES 17 % (0-8); NUCLEATED RED BLOOD CELL 1 (0-0); POLYS (SEG NEUTROPHILS) 62 % (16-70)
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
[2017-11-13] MEDS: DOCUSATE SODIUM 100 MG CAP PO SCH ×2 (09:00→20:45)
[2017-11-13] MEDS: CHLORHEXIDINE 0.12% (ORAL KIT) 15 ML CUP MT SCH ×2 (09:01→20:34)
[2017-11-13] MEDS: CHOLECALCIFEROL (VIT D3) 1000 UNIT TAB PO SCH (09:02)
[2017-11-13] MEDS: CALCIUM/VITAMIN D 250 MG/125 U TAB PO SCH ×3 (09:02→17:34)
[2017-11-13] MEDS: LACTULOSE SYRUP 20 GM/30 ML CUP PO SCH (09:02)
[2017-11-13] MEDS: FAMOTIDINE 20 MG TAB PO SCH ×2 (09:02→20:45)
[2017-11-13] MEDS: DOCUSATE SODIUM 50 MG/SENNA 8.6 MG TAB PO SCH ×2 (09:03→20:45)
[2017-11-13] MEDS: INSULIN DETEMIR 100 UNITS/ML VIAL SQ SCH ×2 (09:03→20:45)
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
--- NOTE | 2017-11-13 11:35 | HHI.PR ---
Neuropsych Emotional Emotional: UnabletoAssess: Emotional, Anxious/Fearful, Depressed/Sad, Hostile/ Resentful, Irritable/Angry/Frustrate, Labile, Constricted/Blunted Behavior Behavior: Intact: Impulsive/Agitated, Unable to Asses: Behavior, Coping/ Acceptance, Cooperative w/ Treatment, Motivation, Frustration Tolerance/Criders, Suicidal/Homicidal Risk Cognitive Cognitive: Unable to Asses: Cognitive, Attention/Concentration, Confused/ Orientation, Insight/Awareness, Judgement/Problem-Solving, Memory Psychosocial Psychosocial: Moderate: Psychosocial, Family/Other Adjustment, Realistic Expectation, Unable to Asses: Self-Esteem/Confidence Progress Notes/Response to Tx Contents of Sessions: Adjustment, Level of Consciousness Time with Patient: 15 minutes Premorbid psychological status Premorbid Cognitive, Emotional and Behavioral Status: Unable to Assess. The patient has unknown years of education and an unknown work history prior to this injury. The patient has no known prior] psychiatric difficulties, as described above. Substance abuse history is unknown. Behavioral Reactions of Patient and Family/Support System: Deferred. The patients family is experiencing ongoing issues of adjustment given the nature of the injury, and this aspect of recovery will require ongoing monitoring. Emotional/Behavioral Status of Patient and Family/Support System: Deferred. Pertinent issues, if appropriate to this patients clinical care, are described in detail above. Maximizing acute care outcome It is recommended that the patient be monitored for emergent behavioral impulsivity as the medical condition evolves. This patients neuropathological challenges may limit his rehabilitation potential going forward, and these challenges will require specialized therapeutic skills to maximize outcome. Additionally, the patients family is experiencing ongoing issues of adjustment given the traumatic nature of the injury, and they may benefit from ongoing psychological assistance. At this point in the recovery process, the patient does not have cognitive capacity as the patient is unable to understand a situation and its likely consequences, nor is he able to manipulate information rationally. Cognitive capacity will be assessed throughout the recovery process. Anticipated Problems Ongoing areas of concern will include behavioral impulsivity, lack of insight and judgment, which is expected to improve with time and treatment. Given the severity of the patient's injuries it is my clinical opinion that this patient will be unable to return to any type of productive employment for at least one year, perhaps longer and likely never. This patient is not considered safe to discharge home without supervision. Treatment Plan This clinician will continue to follow with you throughout the course of this patients critical care treatment, and I will be available to meet with the patients family/support system to facilitate their understanding and the ongoing care of their family member. The goals of neuropsychological intervention shall be both educational and supportive to the family/support system as is deemed clinically appropriate. [facility] Level: I:No response-total assistance Diagnosis: (1) Major neurocognitive disorder as late effect of traumatic brain injury without behavioral disturbance Progress Note Narrative PTD 9. There are no neurobehavioral issues that have developed. This patient remains with no chance for a meaningful neurobehavioral recovery, and [facility]. I will follow. Jens Strickland PhD Nov 13, 2017 11:35 am
[2017-11-13] MEDS: METOPROLOL TARTRATE 50 MG TAB PO SCH ×2 (11:51→20:45)
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
[2017-11-14] VITALS (16 sets, daily range): BP systolic 148–179; BP diastolic 68–87; PULSE 82–106; RESP 15–42; TEMP 98.7–99.7; O2SAT 76–100
[2017-11-14] MEDS: hydrALAZINE HCL 20 MG/ML VIAL IV PRN ×3 (00:38→14:10)
[2017-11-14] MEDS: CHLORHEXIDINE GLUCONATE 2 % 1 PACK (2 CLOTHS) TOP SCH (02:20)
[2017-11-14] MEDS: INSULIN ASPART SUPPLEMENTAL SCALE SQ SCH ×4 (05:20→18:00)
[2017-11-14] MEDS: HEPARIN SODIUM - SQ 10,000 UNITS/ML VIAL SQ SCH ×2 (05:47→14:10)
[2017-11-14 06:42] LABS: BICARBONATE 26.8 MEQ/L (21.0-32.0); CALCIUM 8.7 MG/DL (8.5-10.1); CREATININE 3.71 MG/DL (0.60-1.30)
[2017-11-14] MEDS: INSULIN DETEMIR 100 UNITS/ML VIAL SQ SCH (07:51)
[2017-11-14] MEDS: CHLORHEXIDINE 0.12% (ORAL KIT) 15 ML CUP MT SCH (08:00)
--- NOTE | 2017-11-14 08:19 | HHI.PR ---
Neuropsych Emotional Emotional: UnabletoAssess: Emotional, Anxious/Fearful, Depressed/Sad, Hostile/ Resentful, Irritable/Angry/Frustrate, Labile, Constricted/Blunted Behavior Behavior: Intact: Impulsive/Agitated Cognitive Cognitive: Unable to Asses: Cognitive, Attention/Concentration, Confused/ Orientation, Insight/Awareness, Judgement/Problem-Solving, Memory Psychosocial Psychosocial: Intact: Psychosocial, Family/Other Adjustment, Realistic Expectation, Unable to Asses: Self-Esteem/Confidence Progress Notes/Response to Tx Contents of Sessions: Adjustment, Level of Consciousness Time with Patient: 15 minutes Premorbid psychological status Premorbid Cognitive, Emotional and Behavioral Status: Unable to Assess. The patient has unknown years of education and an unknown work history prior to this injury. The patient has no known prior] psychiatric difficulties, as described above. Substance abuse history is unknown. Behavioral Reactions of Patient and Family/Support System: Deferred. The patients family is experiencing ongoing issues of adjustment given the nature of the injury, and this aspect of recovery will require ongoing monitoring. Emotional/Behavioral Status of Patient and Family/Support System: Deferred. Pertinent issues, if appropriate to this patients clinical care, are described in detail above. Maximizing acute care outcome It is recommended that the patient be monitored for emergent behavioral impulsivity as the medical condition evolves. This patients neuropathological challenges may limit his rehabilitation potential going forward, and these challenges will require specialized therapeutic skills to maximize outcome. Additionally, the patients family is experiencing ongoing issues of adjustment given the traumatic nature of the injury, and they may benefit from ongoing psychological assistance. At this point in the recovery process, the patient does not have cognitive capacity as the patient is unable to understand a situation and its likely consequences, nor is he able to manipulate information rationally. Cognitive capacity will be assessed throughout the recovery process. Anticipated Problems Ongoing areas of concern will include behavioral impulsivity, lack of insight and judgment, which is expected to improve with time and treatment. Given the severity of the patient's injuries it is my clinical opinion that this patient will be unable to return to any type of productive employment for at least one year, perhaps longer and likely never. This patient is not considered safe to discharge home without supervision. Treatment Plan This clinician will continue to follow with you throughout the course of this patients critical care treatment, and I will be available to meet with the patients family/support system to facilitate their understanding and the ongoing care of their family member. The goals of neuropsychological intervention shall be both educational and supportive to the family/support system as is deemed clinically appropriate. [facility] Level: I:No response-total assistance Diagnosis: (1) Major neurocognitive disorder as late effect of traumatic brain injury without behavioral disturbance Progress Note Narrative PTD 10. There is no neurobehavioral improvement in this patient. He is off sedation with some spontaneous movement and a GCS of 4. There is no chance for a reasonable neurobehavioral recovery in this patient. He remains [place]. Palliative care is consulted. I will follow. Jens Strickland PhD Nov 14, 2017 8:19 am
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
[2017-11-14] MEDS: METOPROLOL TARTRATE 50 MG TAB PO SCH (08:50)
[2017-11-14] MEDS: FAMOTIDINE 20 MG TAB PO SCH (08:50)
[2017-11-14] MEDS: DOCUSATE SODIUM 50 MG/SENNA 8.6 MG TAB PO SCH (08:50)
[2017-11-14] MEDS: LACTULOSE SYRUP 20 GM/30 ML CUP PO SCH (08:50)
[2017-11-14] MEDS: CHOLECALCIFEROL (VIT D3) 1000 UNIT TAB PO SCH (08:51)
[2017-11-14] MEDS: CALCIUM/VITAMIN D 250 MG/125 U TAB PO SCH ×3 (08:51→18:00)
[2017-11-14] MEDS: DOCUSATE SODIUM 100 MG CAP PO SCH (08:51)
[2017-11-14 10:26] LABS: AUTOMATED NEUTROPHIL # 11.9 TH/MM3 (1.8-7.7); BASOPHIL % 0.1 % (0.0-2.0); EOSINOPHIL # 0.1 TH/MM3 (0-0.4); EOSINOPHIL % 0.8 % (0.0-4.0); HEMATOCRIT 23.5 % (39.0-51.0); HEMOGLOBIN 7.5 GM/DL (13.0-17.0); LYMPH % 6.9 % (9.0-44.0); MEAN CELL VOLUME 83.6 FL (80.0-100.0); MEAN CORPUSCULAR HEMOGLOBIN 26.8 PG (27.0-34.0); MEAN CORPUSCULAR HGB CONC 32.1 % (32.0-36.0); MEAN PLATELET VOLUME 8.9 FL (7.0-11.0); MONO % 9.7 % (0.0-8.0); MONOCYTE # 1.4 TH/MM3 (0-0.9); NEUT % 82.5 % (16.0-70.0); PLATELET COUNT 298 TH/MM3 (150-450); RED BLOOD COUNT 2.81 MIL/MM3 (4.50-5.90); RED CELL DISTRIBUTION WIDTH 17.8 % (11.6-17.2); WHITE BLOOD COUNT 14.4 TH/MM3 (4.0-11.0)
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
[2017-11-14] MEDS ORDERED: LORazepam 2 MG/ML VIAL IV PUSH ONE ×2 (11:45→12:00)
[2017-11-14] MEDS ORDERED: MORPHINE SULFATE 8 MG/ML INJ IV PUSH ONE (11:45)
[2017-11-14] MEDS ORDERED: HYOSCYAMINE 0.5 MG/ML AMP IV PUSH ONE (11:45)
[2017-11-14] MEDS ORDERED: MORPHINE SULFATE 4 MG/ML INJ IV PUSH ONE (12:00)
[2017-11-14] MEDS ORDERED: BISACODYL 10 MG SUPP RECTAL PRN (12:15)
[2017-11-14] MEDS ORDERED: LORazepam 2 MG/ML VIAL IV PUSH PRN (12:15)
[2017-11-14] MEDS ORDERED: MORPHINE SULFATE 8 MG/ML INJ IV PUSH PRN (12:15)
[2017-11-14] MEDS ORDERED: ACETAMINOPHEN 650 MG SUPP RECTAL PRN (12:15)
[2017-11-14] MEDS ORDERED: HYOSCYAMINE 0.5 MG/ML AMP IV PUSH PRN (12:15)
[2017-11-14] MEDS ORDERED: FUROSEMIDE 20 MG/2 ML VIAL IV PUSH PRN (12:15)
[2017-11-14] MEDS ORDERED: LORazepam 2 MG/ML VIAL IV PUSH SCH (16:00)
[2017-11-14] MEDS ORDERED: MORPHINE SULFATE 4 MG/ML INJ IV PUSH SCH (16:00)
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
[2017-11-14] MEDS: ERGOCALCIFEROL (VIT D2) 50,000 UNIT CAP PO SCH (17:00)
[2017-11-14] MEDS: HYOSCYAMINE 0.125 MG TAB PO PRN (19:31)
[2017-11-14] MEDS: LORazepam 2 MG/ML VIAL IV PUSH PRN ×5 (20:02→23:11)
[2017-11-14] MEDS: MORPHINE SULFATE 4 MG/ML INJ IV PUSH PRN ×4 (20:38→23:11)
[2017-11-15] MEDS: MORPHINE SULFATE 4 MG/ML INJ IV PUSH PRN ×2 (00:29→03:19)
[2017-11-15] MEDS: LORazepam 2 MG/ML VIAL IV PUSH PRN ×2 (00:29→03:19)
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
== END 2017-11-15 07:45 | disposition expired | DRG 955 ==
LOC: NEPI 21:21 → NEDA 22:10 → MERGE 22:10 → EDBD 22:10 → N03A 22:15
PROVIDERS: ADMIT Surgery Trauma Surgery; ATTEND Surgery Trauma Surgery
PROC: 00H032Z Insertion of Monitoring Device into Brain, Percutaneous Approach (ICD-10-PCS; principal; 2017-11-04)
PROC: 5A1955Z Respiratory Ventilation, Greater than 96 Consecutive Hours (ICD-10-PCS; 2017-11-04)
PROC: 4A103BD Monitoring of Intracranial Pressure, Percutaneous Approach (ICD-10-PCS; 2017-11-04)
PROC: 0BH17EZ Insertion of Endotracheal Airway into Trachea, Via Natural or Artificial Opening (ICD-10-PCS; 2017-11-04)
PROC: 0QSC04Z Reposition Left Lower Femur with Internal Fixation Device, Open Approach (ICD-10-PCS; 2017-11-05)
PROC: 0JDK0ZZ Extraction of Left Hand Subcutaneous Tissue and Fascia, Open Approach (ICD-10-PCS; 2017-11-05)
PROC: 0JQK0ZZ Repair Left Hand Subcutaneous Tissue and Fascia, Open Approach (ICD-10-PCS; 2017-11-05)
PROC: 0QS335Z Reposition Left Pelvic Bone with External Fixation Device, Percutaneous Approach (ICD-10-PCS; 2017-11-05)
PROC: 0QS235Z Reposition Right Pelvic Bone with External Fixation Device, Percutaneous Approach (ICD-10-PCS; 2017-11-05)
PROC: 03HY32Z Insertion of Monitoring Device into Upper Artery, Percutaneous Approach (ICD-10-PCS; 2017-11-05)
PROC: 02HV33Z Insertion of Infusion Device into Superior Vena Cava, Percutaneous Approach (ICD-10-PCS; 2017-11-05)
PROC: 0QSH04Z Reposition Left Tibia with Internal Fixation Device, Open Approach (ICD-10-PCS; 2017-11-07)
PROC: 0PSG35Z Reposition Left Humeral Shaft with External Fixation Device, Percutaneous Approach (ICD-10-PCS; 2017-11-07)
PROC: 0PSL35Z Reposition Left Ulna with External Fixation Device, Percutaneous Approach (ICD-10-PCS; 2017-11-07)
PROC: 0PS Upper Bones, Reposition (ICD-10-PCS; 2017-11-10)
PROC: 0NUQ0JZ Supplement Left Orbit with Synthetic Substitute, Open Approach (ICD-10-PCS; 2017-11-10)
PROC: 0NSN04Z Reposition Left Zygomatic Bone with Internal Fixation Device, Open Approach (ICD-10-PCS; 2017-11-10)
PROC: 0NSQ04Z Reposition Left Orbit with Internal Fixation Device, Open Approach (ICD-10-PCS; 2017-11-10)
PROC: 0NSR04Z Reposition Maxilla with Internal Fixation Device, Open Approach (ICD-10-PCS; 2017-11-10)
PROC: 0HDGXZZ Extraction of Left Hand Skin, External Approach (ICD-10-PCS; 2017-11-10)
PROC: 0NSBXZZ Reposition Nasal Bone, External Approach (ICD-10-PCS; 2017-11-10)
DX: S06.6X9A Traumatic subarachnoid hemorrhage with loss of consciousness of unspecified duration, initial encounter (principal); S32.591A Other specified fracture of right pubis, initial encounter for closed fracture; J96.00 Acute respiratory failure, unspecified whether with hypoxia or hypercapnia; N17.0 Acute kidney failure with tubular necrosis; S32.019A Unspecified fracture of first lumbar vertebra, initial encounter for closed fracture; S12.300A Unspecified displaced fracture of fourth cervical vertebra, initial encounter for closed fracture; S32.029A Unspecified fracture of second lumbar vertebra, initial encounter for closed fracture; N18.4 Chronic kidney disease, stage 4 (severe); S72.41 Unspecified condyle fracture of lower end of femur; E87.1 Hypo-osmolality and hyponatremia; S22.011A Stable burst fracture of first thoracic vertebra, initial encounter for closed fracture; S32.039A Unspecified fracture of third lumbar vertebra, initial encounter for closed fracture; D62 Acute posthemorrhagic anemia; S32.82XA Multiple fractures of pelvis without disruption of pelvic ring, initial encounter for closed fracture; S27.322A Contusion of lung, bilateral, initial encounter; S32.10XA Unspecified fracture of sacrum, initial encounter for closed fracture; S32.592A Other specified fracture of left pubis, initial encounter for closed fracture; S82.142A Displaced bicondylar fracture of left tibia, initial encounter for closed fracture; S42.402A Unspecified fracture of lower end of left humerus, initial encounter for closed fracture; S56.424A Laceration of extensor muscle, fascia and tendon of left middle finger at forearm level, initial encounter; S62.331B Displaced fracture of neck of second metacarpal bone, left hand, initial encounter for open fracture; S32.049A Unspecified fracture of fourth lumbar vertebra, initial encounter for closed fracture; S32.059A Unspecified fracture of fifth lumbar vertebra, initial encounter for closed fracture; S22.43XA Multiple fractures of ribs, bilateral, initial encounter for closed fracture; S12.400A Unspecified displaced fracture of fifth cervical vertebra, initial encounter for closed fracture; S12.500A Unspecified displaced fracture of sixth cervical vertebra, initial encounter for closed fracture; S12.600A Unspecified displaced fracture of seventh cervical vertebra, initial encounter for closed fracture; S22.021A Stable burst fracture of second thoracic vertebra, initial encounter for closed fracture; S22.031A Stable burst fracture of third thoracic vertebra, initial encounter for closed fracture; S22.041A Stable burst fracture of fourth thoracic vertebra, initial encounter for closed fracture; S22.051A Stable burst fracture of T5-T6 vertebra, initial encounter for closed fracture; E87.0 Hyperosmolality and hypernatremia; S06.1X9A Traumatic cerebral edema with loss of consciousness of unspecified duration, initial encounter; S06.359A Traumatic hemorrhage of left cerebrum with loss of consciousness of unspecified duration, initial encounter; S02.32XA Fracture of orbital floor, left side, initial encounter for closed fracture; S02.40FA Zygomatic fracture, left side, initial encounter for closed fracture; S02.40DA Maxillary fracture, left side, initial encounter for closed fracture; S52.022A Displaced fracture of olecranon process without intraarticular extension of left ulna, initial encounter for closed fracture; R40.2432 Glasgow coma scale score 3-8, at arrival to emergency department; S62.611A Displaced fracture of proximal phalanx of left index finger, initial encounter for closed fracture; S02.2XXA Fracture of nasal bones, initial encounter for closed fracture; E87.5 Hyperkalemia; D63.1 Anemia in chronic kidney disease; I25.10 Atherosclerotic heart disease of native coronary artery without angina pectoris; I12.9 Hypertensive chronic kidney disease with stage 1 through stage 4 chronic kidney disease, or unspecified chronic kidney disease; J44.9 Chronic obstructive pulmonary disease, unspecified; E11.22 Type 2 diabetes mellitus with diabetic chronic kidney disease; E83.51 Hypocalcemia; Z51.5 Encounter for palliative care; V03.10XA Pedestrian on foot injured in collision with car, pick-up truck or van in traffic accident, initial encounter; Y93.01 Activity, walking, marching and hiking; Y92.410 Unspecified street and highway as the place of occurrence of the external cause; E11.65 Type 2 diabetes mellitus with hyperglycemia; Z66 Do not resuscitate; R13.10 Dysphagia, unspecified; F02.80 Dementia in other diseases classified elsewhere, unspecified severity, without behavioral disturbance, psychotic disturbance, mood disturbance, and anxiety; Z72.0 Tobacco use; Z95.5 Presence of coronary angioplasty implant and graft
CPT/HCPCS: 29105; 29505; 31500; 36430; 36556; 36600; 61210; 70450; 70486; 71045; 71250; 72125; 72128; 72131; 72170; 73070; 73130; 73200; 73551; 73552; 73590; 73700; 74176; 76000; 76937; 80048; 80053; 82550; 82552; 82805; 82947; 82948; 83735; 83930; 83935; 84100; 84132; 84155; 84295; 84300; 85007; 85014; 85018; 85025; 85027; 85610; 85730; 86850; 86900; 86901; 86920; 90471; 90715; 93005; 94002; 94003; 94770; 95819; 96374; 99291; C1713; G0390; J0330; J0360; J0690; J1100; J1580; J1644; J1815; J1940; J1953; J1980; J2060; J2150; J2250; J2270; J2370; J3010; J3370; J7030; J7050; J7070; J7120; L0150; L0172; L1830; L8699; P9016; Q4081